=== PATIENT | female | born 1935 | race Caucasian/White ===

== ENCOUNTER 2016-04-15 16:39 | Inpatient (IN) | payer MEDICARE, OTHER ==
--- NOTE | 2016-04-15 18:45 | ED.PDOC ---
History of Present Illness - General Chief Complaint: GI Problem Stated Complaint: nausea, poor intake Time Seen by Provider: 04/15/16 18:33 Source: family Exam Limitations: clinical condition - History of Present Illness Allergies/Adverse Reactions: Allergies Amoxicillin Allergy (Verified 04/15/16 17:23) Epinephrine Allergy (Verified 04/15/16 17:23) Lidocaine Allergy (Verified 04/15/16 17:23) Home Medications: Ambulatory Orders Amlodipine Besylate 5 mg PO DAILY 04/11/13 Aspirin [Aspirin 81] 81 mg PO DAILY 04/11/13 Atorvastatin Calcium 20 mg PO HS 04/11/13 Carvedilol 6.25 mg PO BID 04/11/13 Cholecalciferol [Vitamin D] 1,000 unit PO BID 04/11/13 Furosemide 40 mg PO BID 04/11/13 Isosorbide Mononitrate [Isosorbide Mononitrate ER] 30 mg PO DAILY 04/11/13 Paricalcitol [Zemplar] 1 mcg PO DAILY 04/11/13 Potassium Chloride [Potassium Chloride ER] 8 meq PO DAILY 04/11/13 Raloxifene HCl [Evista] 60 mg PO DAILY 04/11/13 Spironolactone 25 mg PO DAILY 04/11/13 Donepezil Hydrochloride [Aricept] 10 mg PO DAILY 09/29/14 Remidex 1 mg PO DAILY 09/29/14 Past Medical History (General) - Patient Medical History Hx Seizures: No Hx Stroke: No Hx Asthma: No Hx of COPD: Yes Hx Cardiac Disorders: Yes Hx Congestive Heart Failure: Yes Hx Pacemaker: No Hx Hypertension: Yes Hx Diabetes: No Hx Renal Disease: Yes - Kidney disease Hx Cancer: Yes - Breast Hx MRSA: No - Vaccination History Hx Influenza Vaccination: No - unknown Hx Pneumococcal Vaccination: No - unknown - Social History Hx Tobacco Use: Yes Hx Alcohol Use: No Hx Substance Use: No Hx Physical Abuse: No Hx Emotional Abuse: No - Activities of Daily Living Senior Care/Assisted Living (if applicable):: [facility] - Female History Patient is a Female of Child Bearing Age (10 -59 yrs old): No Departure - Departure Departure Forms: ED Discharge - Pt. Copy, Patient Portal Self Enrollment Home Medications: Ambulatory Orders Amlodipine Besylate 5 mg PO DAILY 04/11/13 Aspirin [Aspirin 81] 81 mg PO DAILY 04/11/13 Atorvastatin Calcium 20 mg PO HS 04/11/13 Carvedilol 6.25 mg PO BID 04/11/13 Cholecalciferol [Vitamin D] 1,000 unit PO BID 04/11/13 Furosemide 40 mg PO BID 04/11/13 Isosorbide Mononitrate [Isosorbide Mononitrate ER] 30 mg PO DAILY 04/11/13 Paricalcitol [Zemplar] 1 mcg PO DAILY 04/11/13 Potassium Chloride [Potassium Chloride ER] 8 meq PO DAILY 04/11/13 Raloxifene HCl [Evista] 60 mg PO DAILY 04/11/13 Spironolactone 25 mg PO DAILY 04/11/13 Donepezil Hydrochloride [Aricept] 10 mg PO DAILY 09/29/14 Remidex 1 mg PO DAILY 09/29/14
[2016-04-15] MEDS ORDERED: CALCIUM GLUCONATE INJ 1 GM/10 ML VIAL IV ONE (19:06)
[2016-04-15] MEDS ORDERED: INSULIN, REG.(HUMAN) 100 U/ML VIAL IV ONE (19:07)
[2016-04-15] MEDS ORDERED: SODIUM BICARBONATE SYRINGE 50 MEQ/50 ML SYG IV ONE (19:08)
--- NOTE | 2016-04-15 19:23 | ED.PDOC ---
History of Present Illness - General Chief Complaint: GI Problem Stated Complaint: nausea, poor intake Time Seen by Provider: 04/15/16 18:33 Source: patient, RN notes reviewed Exam Limitations: no limitations Additional Information: She was brought here by [facility] personnel for further evaluation of abnormal lab result.Patient stated she had been feeling weak for several weeks with loss of appetite,nauseated. - History of Present Illness Initial Comments: Sent by md for further evaluation of abnormal lab test Timing/Duration: other - 2 weeks Improving Factors: nothing Associated Symptoms: loss of appetite Allergies/Adverse Reactions: Allergies Amoxicillin Allergy (Verified 04/15/16 17:23) Epinephrine Allergy (Verified 04/15/16 17:23) Lidocaine Allergy (Verified 04/15/16 17:23) Home Medications: Ambulatory Orders Amlodipine Besylate 5 mg PO DAILY 04/11/13 Aspirin [Aspirin 81] 81 mg PO DAILY 04/11/13 Atorvastatin Calcium 20 mg PO HS 04/11/13 Carvedilol 6.25 mg PO BID 04/11/13 Cholecalciferol [Vitamin D] 1,000 unit PO BID 04/11/13 Furosemide 40 mg PO BID 04/11/13 Isosorbide Mononitrate [Isosorbide Mononitrate ER] 30 mg PO DAILY 04/11/13 Paricalcitol [Zemplar] 1 mcg PO DAILY 04/11/13 Potassium Chloride [Potassium Chloride ER] 8 meq PO DAILY 04/11/13 Raloxifene HCl [Evista] 60 mg PO DAILY 04/11/13 Spironolactone 25 mg PO DAILY 04/11/13 Donepezil Hydrochloride [Aricept] 10 mg PO DAILY 09/29/14 Remidex 1 mg PO DAILY 09/29/14 Past Medical History (General) - Patient Medical History Hx Seizures: No Hx Stroke: No Hx Asthma: No Hx of COPD: Yes Hx Cardiac Disorders: Yes Hx Congestive Heart Failure: Yes Hx Pacemaker: No Hx Hypertension: Yes Hx Diabetes: No Hx Renal Disease: Yes - Kidney disease Hx Cancer: Yes - Breast Hx MRSA: No - Vaccination History Hx Influenza Vaccination: No - unknown Hx Pneumococcal Vaccination: No - unknown - Social History Hx Tobacco Use: Yes Hx Alcohol Use: No Hx Substance Use: No Hx Physical Abuse: No Hx Emotional Abuse: No - Activities of Daily Living Senior Care/Assisted Living (if applicable):: [facility] [place] - Female History Patient is a Female of Child Bearing Age (10 -59 yrs old): No Family Medical History - Family History Mother Family History: Unknown Name: Jennifer Trevino Living Status: Age at (years of age): 82 Cause of : Heart attack Physical Exam - Physical Exam General Appearance: Alert, No apparent distress Ears, Nose, Throat: hearing grossly normal, normal ENT inspection, normal pharynx Neck: non-tender, full range of motion, supple Respiratory: lungs clear, normal breath sounds, no respiratory distress, no accessory muscle use Cardiovascular/Chest: normal peripheral pulses, regular rate, rhythm, no edema, no murmur Peripheral Pulses: radial,right: 2+, radial,left: 2+ Gastrointestinal/Abdominal: normal bowel sounds, non tender, soft, no organomegaly Back Exam: normal inspection, no CVA tenderness Extremity: non-tender, pedal edema - +1 bilaterally Neurologic: no motor/sensory deficits, alert, oriented x 3 Skin Exam: normal color, warm/dry Lymphatic: no adenopathy Departure - Departure Clinical Impression: [id number] renal failure, Hyperkalemia, diminished renal excretion, CHF with unknown LVEF Time of Disposition: 00:00 - D/W Smith [id number] Disposition: Admit Patient Condition: Fair Departure Forms: ED Discharge - Pt. Copy, Patient Portal Self Enrollment Home Medications: Ambulatory Orders Amlodipine Besylate 5 mg PO DAILY 04/11/13 Aspirin [Aspirin 81] 81 mg PO DAILY 04/11/13 Atorvastatin Calcium 20 mg PO HS 04/11/13 Carvedilol 6.25 mg PO BID 04/11/13 Cholecalciferol [Vitamin D] 1,000 unit PO BID 04/11/13 Furosemide 40 mg PO BID 04/11/13 Isosorbide Mononitrate [Isosorbide Mononitrate ER] 30 mg PO DAILY 04/11/13 Paricalcitol [Zemplar] 1 mcg PO DAILY 04/11/13 Potassium Chloride [Potassium Chloride ER] 8 meq PO DAILY 04/11/13 Raloxifene HCl [Evista] 60 mg PO DAILY 04/11/13 Spironolactone 25 mg PO DAILY 04/11/13 Donepezil Hydrochloride [Aricept] 10 mg PO DAILY 09/29/14 Remidex 1 mg PO DAILY 09/29/14
--- NOTE | 2016-04-15 21:03 | CT ---
PROCEDURE: Abdoment/Pelvis w/o Contrast Clinical History: pain Indication: Same as above Comparison: CT of the chest done on 09/30/2014 Technique: CT of the abdomen and pelvis was done without intravenous contrast. Images were obtained from the lung base to the level of the pubic symphysis in axial plane, followed by orthogonal sagittal and coronal reconstruction. Oral contrast was not given for the study. Total DLP: 1187.3 mGy*cm. Findings: Images through the lung bases show underlying changes of COPD. There is presence of a 1.0 cm nodule in the periphery of the right lower lobe of the lung with spiculated margins raising the possibility of a malignant lesion and needs to be further assessed with a dedicated CT of the chest The liver, gallbladder, pancreas, spleen and the bilateral adrenal glands appear unremarkable, given the limitation of lack of intravenous contrast. The left kidney slightly atrophic. There is presence of multiple subcentimeter nonobstructive bilateral renal calculi, worst on the right than the left side. Note is also made of parenchymal calcifications involving the lower pole of the atrophic left kidney The urinary bladder is unremarkable, without any evidence of wall thickening, calculi or filling defects. The small bowel appears unremarkable, without any evidence of small bowel obstruction or bowel wall thickening. The appendix is not visualized There is no CT evidence of acute colonic diverticulitis or colitis or large bowel obstruction. There is no pathological lymphadenopathy in the retroperitoneum or in the pelvic region. There is no evidence of free fluid or free air in the abdomen or the pelvic region. Atherosclerotic changes are seen in the abdominal aorta. There is presence of aorta iliac stents There is no clinically significant inguinal or ventral hernia. The visualized lumbar spine show underlying mild degenerative change. The paravertebral soft tissues are unremarkable. The remainder of the pelvic structures are unremarkable. Impression: Images through the lung bases show underlying changes of COPD. There is presence of a 1.0 cm nodule in the periphery of the right lower lobe of the lung with spiculated margins raising the possibility of a malignant lesion and needs to be further assessed with a dedicated CT of the chest The left kidney slightly atrophic. There is presence of multiple subcentimeter nonobstructive bilateral renal calculi, worst on the right than the left side. Note is also made of parenchymal calcifications involving the lower pole of the atrophic left kidney Location of Interpretation: Teleradiology Electronically signed by: Moreno De Leon MD 04/15/2016 9:02 PM ONLINE MARKETING ANALYST
[2016-04-15] MEDS ORDERED: DEX 5% W/NACL 0.45% 1000ML 1,000 ML IVS PRN (21:15)
[2016-04-15] MEDS ORDERED: SOD POLYSTYRENE SULFONATE 15 GM/60 ML BTTL PO ONE (21:18)
[2016-04-15] MEDS ORDERED: SODIUM BICARBONATE VIAL 50 MEQ in DEXTROSE 5% 1000ML 1,000 ML IVS SCH (21:30)
--- NOTE | 2016-04-16 00:05 | HP ---
SUPERVISING PHYSICIAN: Dago Choudhury MD CHIEF COMPLAINT: Nausea and poor intake. HISTORY OF PRESENT ILLNESS: Ms. Leija is an 80-year-old, female patient who presented to the Emergency Department from [facility]. The [facility] facility noted there were some abnormal lab results and the patient was instructed to go to the Emergency Room for further evaluation. She had been having some weakness for the last several weeks and loss of appetite and has been nauseated. In the Emergency Department, laboratory studies were completed showing she had a mild leukocytosis of 11.4 with a left shift. Chemistries shows hyperkalemia with potassium 6.3, but BUN was 84, creatinine 4.13, calcium 8.8, uric acid 9.0, lipase elevated at 60. She was then given treatment for the hyperkalemia with sodium bicarb, calcium gluconate and insulin. Repeated laboratory studies showed she continued to have elevated potassium of 5.8. She was then given Kayexalate. I was requested to evaluate the patient for possible admission with the patient having acute on chronic renal failure. Her EKG showed some T-wave inversion in the anterolateral leads. Troponin was 0.04. The patient was without any significant chest pains. Her BNP was elevated at 334. Urine showed just a trace of blood with microscopic with 3 to 5 RBCs. She was hemodynamically stable with blood pressure of 119/67 with heart of 64 and afebrile at 97.2. O2 saturation 96% on room air. The patient is now going to be admitted to the Medical/Surgical Floor for continued treatment and evaluation of acute renal failure with hyperkalemia. She was admitted to the Medical/Surgical Floor in stable condition. PAST MEDICAL HISTORY: 1. Congestive heart failure, currently an angiotensin receptor april. 2. Hyperlipidemia. 3. Peripheral vascular disease. 4. History of lymphedema. 5. History of pulmonary embolism in 2007. 6. History of chronic renal failure, stage 4. 7. Osteoporosis. 8. Hyperparathyroid, followed by Dr. Julian. 9. Breast cancer diagnosed in 2013 status post surgical resection by Dr. Ribera. 10. Alzheimer's. 11. Chronic obstructive pulmonary disease. PAST SURGICAL HISTORY: 1. Left breast mastectomy in 07/[address] Ribera. 2. Colonoscopy in 2007. 3. Echocardiogram on 06/20/15 with estimated ejection fraction of 45%. 4. Cardiac catheterization in 02/2009. CURRENT MEDICAL PROVIDERS: 1. Financial Reporting Specialist, Dr. Albrecht. 2. Binder Caser, Dr. Chaudhari and Dr. Graham. 3. Perforating Machine Operator, Dr. Jama. 4. Maternity Nurse/oncologist, Dr. Chin. 5. Behavioral Health Assistant, Dr. Ponce. 6. Surgeon, Dr. Ribera. 7. Vascular surgeon, Dr. Dickinson. 8. Primary care provider, Dr. Mosqueda CURRENT MEDICATIONS: 1. Aricept 23 mg at bedtime. 2. Aspirin 325 mg daily. 3. Tylenol 500 mg q.6h. p.r.n. pain. 4. Lipitor 20 mg at bedtime. 5. Clonazepam 0.5 mg twice daily as needed. 6. Evista 60 mg daily. 7. Spironolactone 25 mg daily. 8. Vitamin D 1000 units twice daily. 9. Potassium chloride 8 mEq every other day. 10. Namenda 5 mg twice daily. 11. Mucinex 600 mg twice daily as needed. 12. Isosorbide mononitrate Extended Release 30 mg daily. 13. Lasix 40 mg twice daily. 14. Valsartan 40 mg daily. 15. MiraLAX 17 grams daily. 16. Proventil nebulizers 2.5 mg inhaled a.c. and h.s. 17. Advair Diskus 250/50 1 puff twice daily. FAMILY HISTORY: The patient's father at age 66 from coronary artery disease. Mother at age 80 from normal causes. SOCIAL HISTORY: The patient is retired. She does live at [facility]. She is . She has no children. She has a history of previous cigarette smoking, but quit many years past. She denies any alcohol or illicit drug use. REVIEW OF SYSTEMS: CONSTITUTIONAL: Denies any fevers, chills, or unintentional weight loss or weight gain. HEENT: Somewhat hard of hearing, but no visual disturbances noted. RESPIRATORY: No noted shortness of breath, cough. CARDIOVASCULAR: Denies chest pain or palpitations. No syncopal episodes. GASTROINTESTINAL: Denies nausea or vomiting. No diarrhea or bloody stools. GENITOURINARY: Denies dysuria. EXTREMITIES: Denies edema. NEUROLOGIC: Denies syncopal episodes or neurological deficits. PHYSICAL EXAMINATION: VITAL SIGNS: Temperature 97.2. Pulse 64. Blood pressure 119/67. Respirations 18. O2 saturation 95% on room air. Weight 53.2 kg. GENERAL: The patient is alert, appears to be in no acute distress. HEENT: Tympanic membranes clear bilaterally. Oropharynx is pink. Mucous membranes are dry. NECK: Supple, nontender. No jugular venous distention noted. CHEST: Lungs clear to auscultation bilaterally without any rhonchi, wheezes, or rales. CARDIOVASCULAR: Regular rate and rhythm without any appreciable murmurs, gallops, or rubs. ABDOMEN: Soft, nontender. Positive bowel sounds. EXTREMITIES: There is no cyanosis, clubbing or edema. NEUROLOGIC: The patient is alert and oriented times three. Cranial nerves II- XII are grossly intact. Facial features are symmetrical. Extraocular movements are within normal limits. There are no notable motor deficits. LABORATORY: White count 11.4, hemoglobin 12.0, hematocrit 37.0, platelet count 250,000. Differential does show a left shift. Chemistries showed initial potassium of 6.3, BUN 84, creatinine 4.13, glucose 105, calcium 8.8, uric acid 9.0, phosphorous 3.1, magnesium 3.1, lipase slightly elevated at 60. Troponin initially was 0.04, CPK only 88. Repeat laboratory studies after calcium gluconate and IV fluids as well as insulin and sodium bicarb, potassium had decreased a little bit to 5.8, BUN 81, creatinine 4.0, BNP 334. Urinalysis showed trace blood on dipstick. Microscopic revealed 3 to 5 RBCs, otherwise within normal limits. RADIOLOGY: Abdominopelvic CT, noncontrast, per radiology interpretation shows chronic obstructive pulmonary disease changes of the lung bases. There is also note of a 1.0 cm nodule in the periphery of the right lower lobe of the lung with spiculated margins, raising the question of possible malignant lesion. Recommend further assessment with CT of the chest. Also of note was slight atrophic left kidney with multiple subcentimeter nonobstructive bilateral renal calculi, worse on right than left. ASSESSMENT: 1. Acute on chronic renal failure with hyperkalemia with the patient being on Spironolactone and also an angiotensin receptor april, showing minimal improvement after calcium gluconate, sodium bicarb, and insulin in the Emergency Department. 2. Mild leukocytosis, likely secondary to dehydration with no obvious signs of infection. 3. Moderate hyperkalemia in the presence of acute on chronic renal failure, possibly exacerbated by medications including Spironolactone, Angiotensin receptor april and oral potassium. 4. History of congestive heart failure with last ejection fraction in 2016 showing 45% with admission BNP being elevated. 5. Moderate dehydration, possibly exacerbating renal function and hyperkalemia. 6. History of hyperparathyroidism with current elevated uric acid, normal phosphorous and elevated magnesium. 7. Elevated pancreatic enzymes, likely secondary to dehydrated state and poor oral intake. PLAN: The patient is admitted to the hospital for continued treatment and evaluation. In the Emergency Department, treatment of hyperkalemia consisted of calcium gluconate, sodium bicarb and 5 units of insulin. She was also given Kayexalate. We will continue treatment of her hyperkalemia with 10 units of insulin in D10W 500 mL to infuse over an hour to be followed up with IV fluids with D5 and half normal saline to run at 100 mL an hour. She will be on the monitor technician. We will continue to monitor cardiac enzymes in the morning as well as repeat EKG. Dr. Jama is her lead engineer and certainly would benefit from touching base with him in regards to current treatment plan and further treatment and hospitalization. Anticipate length of stay to be 2 to 3 days. We will start her on DVT prophylaxis. Resume her medication except hold her Spironolactone, Lasix, potassium, and Darvon. Until discharge, we will continue to monitor the patient closely and treat appropriately. #[id number] [facility]
[2016-04-16] MEDS ORDERED: INSULIN, REG.(HUMAN) 10 UNITS in DEXTROSE 10% 500ML 500 ML IV ONE ×2 (00:53)
[2016-04-16] MEDS ORDERED: SODIUM CHLORIDE 0.9% (FLUSH) 10 ML SYG IV PRN (00:57)
[2016-04-16] MEDS ORDERED: ACETAMINOPHEN 325 MG TAB PO PRN (00:57)
[2016-04-16] MEDS ORDERED: IV SET AND CAP CHANGE INJ INJ SCH (01:00)
--- NOTE | 2016-04-16 01:06 | PCM.CORE ---
Physician DVT/VTE - Nurse DVT Assessment & Total Each Risk Factor Represents 3 Points: Age over 75 years, Medical PT with Hx of SC, CHF, Severe infection/sepsis Each Risk Factor Represents 2 Points: Malignancy (present/past) Each Risk Factor Represents 1 Point: Medical PT at Bed Rest Each Risk Factor is 1 Point: Varicose Veins/Edema Legs, Serious Lung disease ( pnemonia <1month, COPD, emphysema,etc) DVT Assessment Score: 11 - 5 or more Very High Risk Treatments: Early Ambulation *, Sequential Compression Device Pharmacological: Enoxaparin 40mg SQ Daily
[2016-04-16] MEDS ORDERED: INSULIN LISPRO 100 UNITS/ML PEN SUBCU ONE (01:16)
[2016-04-16] MEDS ORDERED: INSULIN, REG.(HUMAN) 100 U/ML VIAL ONE (01:24)
[2016-04-16] MEDS: ENOXAPARIN SODIUM 30 MG/0.3 ML SYG SUBCU SCH (01:36)
[2016-04-16] MEDS: DEX 5% W/NACL 0.45% 1000ML 1,000 ML IVS PRN ×2 (02:34→12:27)
[2016-04-16] MEDS ORDERED: ACETAMINOPHEN 500 MG TAB PO PRN (03:19)
[2016-04-16] MEDS ORDERED: ATORVASTATIN CALCIUM 20 MG PO SCH (03:30)
[2016-04-16] MEDS ORDERED: ATORVASTATIN 20 MG TAB PO ONE (03:41)
[2016-04-16] MEDS ORDERED: SODIUM CHLORIDE 0.9% 10 ML VIAL IV PRN (06:57)
[2016-04-16] MEDS ORDERED: SODIUM BICARBONATE VIAL 50 MEQ in DEXTROSE 5% 1000ML 1,000 ML IVS PRN (07:56)
[2016-04-16] MEDS: ALBUTEROL SULFATE 2.5 MG/3 ML VIAL NEB SCH ×4 (08:00→21:32)
[2016-04-16] MEDS: CHOLECALCIFEROL 2,000 IU TAB PO SCH ×2 (08:55→21:00)
[2016-04-16] MEDS: CARVEDILOL 3.125 MG TAB PO SCH ×2 (08:55→21:00)
[2016-04-16] MEDS: FUROSEMIDE 40 MG TAB PO SCH ×2 (08:55→16:37)
[2016-04-16] MEDS: POTASSIUM CHLORIDE 8 MEQ TAB PO SCH (08:55)
[2016-04-16] MEDS: MEMANTINE 10 MG TAB PO SCH ×2 (08:56→21:01)
[2016-04-16] MEDS: POLYETHYLENE GLYCOL 3350 17 GM PCKT PO SCH (08:56)
[2016-04-16] MEDS: ISOSORBIDE MONONITRATE (IMDUR) 30 MG TAB PO SCH (08:56)
[2016-04-16] MEDS: NON-FORMULARY MEDICATION 1 EA MIS (Raloxifene Hcl [Evista] 60 MG) PO SCH (08:57)
[2016-04-16] MEDS: FLUTICASONE/SALMETEROL 250/50 14 PUFF/17 GM INH INH SCH ×2 (09:54→21:32)
[2016-04-16] MEDS ORDERED: SODIUM BICARBONATE 10MEQ/10ML 75 MEQ in DEXTROSE 5% 1000ML 1,000 ML IV PRN (12:44)
--- NOTE | 2016-04-16 13:16 | PN ---
SUPERVISING PHYSICIAN: Dago Choudhury MD DATE: 04/16/16 SUBJECTIVE: The patient is lying in her hospital bed. She has no complaints of shortness of breath, chest pain, nausea, vomiting, or diarrhea. OBJECTIVE: VITAL SIGNS: Afebrile. Heart rate 61. It did get as low as 44 overnight. Blood pressure 125/64. Respiratory rate 18. O2 saturation 97%. GENERAL: This is an 80-year-old, female patient who is lying in her hospital bed. She is in no acute distress. LUNGS: Essentially clear to auscultation bilaterally. CARDIAC: Regular rate and rhythm. ABDOMEN: Soft, nontender, nondistended. Bowel sounds are positive. EXTREMITIES: No cyanosis, clubbing or edema. NEUROLOGIC: Awake and alert to person only. LABORATORY: Sodium 137, potassium 3.7, chloride 104, carbon dioxide 23, anion gap 13.7, BUN 72, creatinine 3.53, glucose 85, serum osmolality 294.3, calcium 8.3. Cardiac enzymes continue to be negative. WBC 11.2, hemoglobin 11.2, hematocrit 34.6, platelet count 222, neutrophils 83.1. All other labs and films have been reviewed via the EMR. ASSESSMENT: 1. Acute on chronic renal failure with hyperkalemia. The patient is presently on Spironolactone and an angiotensin receptor april. She received calcium gluconate, sodium bicarb, and insulin in the Emergency Department. 2. Mild leukocytosis, likely secondary to dehydration with no obvious signs of infection. 3. Moderate hyperkalemia in the presence of acute on chronic renal failure, possibly exacerbated by medications including Spironolactone, angiotensin receptor april and oral potassium. 4. History of congestive heart failure with last ejection fraction in 2016 showing 45% with admission BNP being elevated. 5. Moderate dehydration. 6. History of hyperparathyroidism. 7. Elevated pancreatic enzymes, likely secondary to dehydrated state and poor oral intake. PLAN: We will continue gentle hydration and I have given her 1 liter of D5W with some bicarb. I spoke to Dr. Jama this morning and he agrees with our present of plan of care. He agreed at this point that her ARB should be discontinued when she is discharged from the hospital. She is also to have a followup appointment with him on the and I will call his office to get that arranged. I have repeated her lab for in the morning. We will encourage good pulmonary toilet. I will also increase her ambulation as tolerated. Dr. Choudhury is the collaborating physician and available for consultation. #[id number] [facility]
[2016-04-16] MEDS ORDERED: SODIUM BICARBONATE VIAL 50 MEQ/50 ML VIAL ONE (13:19)
[2016-04-16] MEDS ORDERED: DEXTROSE 5% 1000ML 1,000 ML IVS ONE (13:19)
[2016-04-16] MEDS: SODIUM BICARBONATE VIAL 75 MEQ in DEXTROSE 5% 1000ML 1,000 ML IV PRN (13:27)
[2016-04-16] MEDS: ATORVASTATIN 20 MG TAB PO SCH (21:00)
[2016-04-16] MEDS: DONEPEZIL HYDROCHLORIDE PO SCH (21:02)
[2016-04-17] MEDS ORDERED: SODIUM BICARBONATE VIAL 50 MEQ/50 ML VIAL ONE ×2 (00:23→00:25)
[2016-04-17] MEDS ORDERED: DEXTROSE 5% 1000ML 0 ML IVS ONE (00:23)
[2016-04-17] MEDS ORDERED: DEX 5% W/NACL 0.45% 1000ML 0 ML IVS ONE (00:23)
[2016-04-17] MEDS ORDERED: DEXTROSE 5% 1000ML 1,000 ML IVS ONE (00:24)
[2016-04-17] MEDS: SODIUM BICARBONATE VIAL 75 MEQ in DEXTROSE 5% 1000ML 1,000 ML IV PRN (00:32)
[2016-04-17] MEDS: ENOXAPARIN SODIUM 30 MG/0.3 ML SYG SUBCU SCH (01:34)
[2016-04-17] MEDS: MEMANTINE 10 MG TAB PO SCH ×2 (09:02→20:34)
[2016-04-17] MEDS: POLYETHYLENE GLYCOL 3350 17 GM PCKT PO SCH (09:02)
[2016-04-17] MEDS: ISOSORBIDE MONONITRATE (IMDUR) 30 MG TAB PO SCH (09:02)
[2016-04-17] MEDS: CARVEDILOL 3.125 MG TAB PO SCH ×2 (09:02→20:33)
[2016-04-17] MEDS: CHOLECALCIFEROL 2,000 IU TAB PO SCH ×2 (09:02→20:32)
[2016-04-17] MEDS: FUROSEMIDE 40 MG TAB PO SCH ×2 (09:03→17:33)
[2016-04-17] MEDS: NON-FORMULARY MEDICATION 1 EA MIS (Raloxifene Hcl [Evista] 60 MG) PO SCH (09:03)
[2016-04-17] MEDS: FLUTICASONE/SALMETEROL 250/50 14 PUFF/17 GM INH INH SCH ×2 (09:13→20:43)
[2016-04-17] MEDS: ALBUTEROL SULFATE 2.5 MG/3 ML VIAL NEB SCH ×4 (09:13→20:42)
[2016-04-17] MEDS ORDERED: POTASSIUM PHOSPHATE 500 MG TAB PO ONE (15:13)
[2016-04-17] MEDS ORDERED: ASPIRIN TABLET 325 MG TAB PO ONE (15:54)
--- NOTE | 2016-04-17 16:52 | PN ---
DATE: 04/17/16 SUPERVISING PHYSICIAN: Dago Choudhury M.D. SUBJECTIVE: The patient is lying in bed. She is quite sleepy at this time. Nursing staff reported that she became quite anxious at about 5:00 this morning and received a Klonopin. She does open her eyes and answer simple yes or no questions. She does deny chest pain, shortness of breath, nausea or vomiting. OBJECTIVE: She is afebrile, pulse rate 82, blood pressure 103/58, respiratory rate 20, O2 sat is 96%. GENERAL: This is an 80 year-old female patient who is lying in her hospital bed. She is in no acute distress. RESPIRATORY: Essentially clear to auscultation bilaterally. CARDIAC: Regular rate and rhythm. ABDOMEN: Soft, nondistended, non-tender. Bowel sounds are positive. NEUROLOGIC: She is lethargic but she does awaken easily. She is alert to person only. She does answer a few simple yes or no questions appropriately. LABORATORY: WBCs have normalized from 11.2 to 8.1, hemoglobin and hematocrit are stable at 11.3 and 34.5. Neutrophils are now 74.8. Sodium 135, potassium 3.5, chloride 100, anion gap 8.5. BUN yesterday was 72 and it is now 46, creatinine yesterday was 3.53 and today it is 2.44. Baseline creatinine is around 1.4 from about 2014. Calcium 7.9, phosphorus 2.3, alkaline phosphatase 31. All other labs and films have been reviewed via the EMR. ASSESSMENT: 1. Acute on chronic renal failure with hyperkalemia. She is presently on Spironolactone and an ARB as an outpatient. She received calcium gluconate, sodium bicarbonate and insulin in the Emergency Department. Her acute on chronic renal failure is slowly resolving. 2. Mild leukocytosis that is now resolved and is most likely secondary to dehydration with no obvious signs of infection. 3. Moderate hyperkalemia that has now resolved. 4. History of congestive heart failure with her last ejection fraction in 2016 showing 45% and an elevated BNP on admission. 5. Moderate dehydration. 6. History of hyperparathyroidism. 7. Elevated pancreatic enzymes that are now resolved. PLAN: We have discontinued her IV fluids. I have also restarted her Lasix and potassium but I have discontinued her ARB. It should not be continued on discharge as per Dr. Jama. We are also going to get a [facility] appointment on here in [place] for followup. Her lab values are returning to baseline and hopefully we can discharge her tomorrow back to [facility] with close followup with Dr. Mosqueda and Dr. Jama. In the meantime, we will continue to monitor the patient closely and followup as needed. Dr. Choudhury is the collaborating physician available for consultation. #[id number] [facility]
[2016-04-17] MEDS ORDERED: guaiFENesin ER TAB 600 MG TAB ONE (19:41)
[2016-04-17] MEDS: SODIUM CHLORIDE 0.9% (FLUSH) 10 ML SYG IV SCH (20:31)
[2016-04-17] MEDS: ATORVASTATIN 20 MG TAB PO SCH (20:34)
[2016-04-17] MEDS: guaiFENesin ER TAB 600 MG TAB PO SCH (20:35)
[2016-04-17] MEDS: DONEPEZIL HYDROCHLORIDE PO SCH (23:24)
[2016-04-18] MEDS: ENOXAPARIN SODIUM 30 MG/0.3 ML SYG SUBCU SCH (01:25)
[2016-04-18] MEDS ORDERED: SPIRONOLACTONE 25 MG TAB ONE (07:23)
[2016-04-18] MEDS: CARVEDILOL 3.125 MG TAB PO SCH (08:41)
[2016-04-18] MEDS: MEMANTINE 10 MG TAB PO SCH (08:41)
[2016-04-18] MEDS: FLUTICASONE/SALMETEROL 250/50 14 PUFF/17 GM INH INH SCH (08:41)
[2016-04-18] MEDS: ALBUTEROL SULFATE 2.5 MG/3 ML VIAL NEB SCH (08:41)
[2016-04-18] MEDS: CHOLECALCIFEROL 2,000 IU TAB PO SCH (08:42)
[2016-04-18] MEDS: POTASSIUM CHLORIDE 8 MEQ TAB PO SCH (08:42)
[2016-04-18] MEDS: POLYETHYLENE GLYCOL 3350 17 GM PCKT PO SCH (08:42)
[2016-04-18] MEDS: guaiFENesin ER TAB 600 MG TAB PO SCH (08:42)
[2016-04-18] MEDS: ISOSORBIDE MONONITRATE (IMDUR) 30 MG TAB PO SCH (08:42)
[2016-04-18] MEDS: NON-FORMULARY MEDICATION 1 EA MIS (Raloxifene Hcl [Evista] 60 MG) PO SCH (08:42)
[2016-04-18] MEDS: FUROSEMIDE 40 MG TAB PO SCH (08:42)
[2016-04-18] MEDS: SODIUM CHLORIDE 0.9% (FLUSH) 10 ML SYG IV SCH (08:54)
[2016-04-18] MEDS ORDERED: SPIRONOLACTONE 25 MG TAB PO SCH (09:00)
[2016-04-18 10:40] VITALS: BP 96/60; TEMP 97.1; O2SAT 97
--- NOTE | 2016-04-18 18:25 | DS ---
SUPERVISING PHYSICIAN: Vikas Mosqueda M.D. DISCHARGE DIAGNOSIS: 1. Acute on chronic renal failure with hyperkalemia. The hyperkalemia is now resolved. She is on Spironolactone and an ARB as an outpatient prior to admission. 2. Mild leukocytosis that has resolved and most likely secondary to dehydration with no obvious signs of infection. 3. Moderate hyperkalemia that has now resolved. 4. History of congestive heart failure with her last echocardiogram in 2016 with an ejection fraction of 45% and an elevated BNP on admission. 5. Moderate dehydration. 6. History of hyperparathyroidism. 7. Elevated pancreatic enzymes that are now resolved. 8. Dementia. HISTORY OF PRESENT ILLNESS: This is an 80 year-old female patient who is a resident of [facility]. The [facility] noted that there was some abnormal laboratory results and the patient was instructed to go to the Emergency Room for evaluation. She has had some progressive weakness in the last several weeks as well as a loss of appetite. In the Emergency Room, she had mild leukocytosis of 11.4 with a left shift. Her chemistries showed hyperkalemia with potassium 6.3. Her BUN was 84 and creatinine was 4.13, calcium 8.8, uric acid 9. Lipase was elevated at 60. She was given treatment for the hyperkalemia with sodium bicarb, calcium gluconate and insulin. The repeated laboratory studies showed an elevated potassium of 5.8. She was then given Kayexalate. Her cardiac enzymes were negative. BNP was slightly elevated at 334. Urine had a trace of microscopic blood with 3 to 5 RBCs. Blood pressure was 119/67, heart rate 64 and she was afebrile. O2 sats were 96 % on room air. She was admitted to the floor. HOSPITAL COURSE: Again, she was treated with some calcium gluconate, insulin and dextrose, and her potassium came down to 3.7. Creatinine was started at 4.4 and is now down to 2.36. She was given a liter of D5W with 1.[address] Jama was called and he agreed with the present treatment. She does have significant history of dementia and during her stay her dementia at times was rather significant to the point that she would not eat, but she was always pleasant but confused as to where she was. Her labs have been optimized for her present condition and history. She will be discharged back to [facility] today. DISCHARGE PLAN: The patient will be discharged to [facility] in stable condition. She is to resume her previous diet. Her activity is per Physical Therapy. Her previous medications will be resumed with the exception of her ARB will be discontinued at the recommendation of Dr. Jama. She has a followup appointment with Dr. Jama on the 29 of April and she has a followup appointment with Dr. Mosqueda on the 01 of May. DISCHARGE MEDICATIONS: 1. Spironolactone. 2. Evista. 3. Potassium chloride. 4. Isosorbide mononitrate. 5. Furosemide. 6. Vitamin D. 7. Carvedilol. 8. Atorvastatin. 9. Guaifenesin. 10. MiraLAX. 11. Albuterol. 12. Fluticasone/Salmeterol. 13. Namenda. 14. Clonazepam. 15. Aspirin. 16. Acetaminophen. 17. Aricept. Dr. Mosqueda is the collaborating physician available for consultation. #[id number] [facility]
== END 2016-04-18 11:45 | DRG 641 ==
LOC: ER 16:39 → OBSVTOIN 04-16 00:04 → MS 04-16 00:04
PROVIDERS: ADMIT Nurse Practitioner Family; ATTEND Nurse Practitioner Acute Care
DX: E87.5 Hyperkalemia (principal); N17.9 Acute kidney failure, unspecified; N18.4 Chronic kidney disease, stage 4 (severe); E86.0 Dehydration; I50.9 Heart failure, unspecified; J44.9 Chronic obstructive pulmonary disease, unspecified; E21.3 Hyperparathyroidism, unspecified; R74.8 Abnormal levels of other serum enzymes; G30.9 Alzheimer's disease, unspecified; F02.80 Dementia in other diseases classified elsewhere, unspecified severity, without behavioral disturbance, psychotic disturbance, mood disturbance, and anxiety; E78.5 Hyperlipidemia, unspecified; I73.9 Peripheral vascular disease, unspecified; M81.0 Age-related osteoporosis without current pathological fracture; Z85.3 Personal history of malignant neoplasm of breast; Z86.711 Personal history of pulmonary embolism; Z79.51 Long term (current) use of inhaled steroids; Z79.82 Long term (current) use of aspirin; Z79.899 Other long term (current) drug therapy; Z87.891 Personal history of nicotine dependence

== ENCOUNTER 2016-04-25 12:36 | Emergency (ER) | payer MEDICARE, OTHER ==
[2016-04-25 13:02] VITALS: BP 112/68; TEMP 97.6; O2SAT 100
--- NOTE | 2016-04-25 13:23 | ED.PDOC ---
History of Present Illness - General Chief Complaint: General Stated Complaint: nausea x 2 weeks Time Seen by Provider: 04/25/16 12:58 Source: patient, RN notes reviewed, Vital Signs reviewed Exam Limitations: no limitations - History of Present Illness Initial Comments: She stated that she had been nauseated on and off for 2 weeks and was sent here by nursing staff from assisted living complaining about her nausea and she mentioned that she was given hamburger for lunch but requested for soup but it was not given to her and so she ate her burger then afterwards felt nauseated. No vomiting ,no chest pains no weakness.She was hospitalized last week for her worsening of renal failure and elevation of potassium.Recent labs showing normal electrolytes and improving bun/cr done 04/22/16. Timing/Duration: other - 2 weeks ago Improving Factors: nothing Worsening Factors: nothing Associated Symptoms: denies symptoms Allergies/Adverse Reactions: Allergies Amoxicillin Allergy (Verified 04/15/16 17:23) Epinephrine Allergy (Verified 04/15/16 17:23) Lidocaine Allergy (Verified 04/15/16 17:23) Home Medications: Ambulatory Orders Atorvastatin Calcium 20 mg PO HS 04/11/13 Carvedilol 6.25 mg PO BID 04/11/13 Cholecalciferol [Vitamin D] 1,000 unit PO BID 04/11/13 Furosemide 40 mg PO BID 04/11/13 Isosorbide Mononitrate [Isosorbide Mononitrate ER] 30 mg PO DAILY 04/11/13 Potassium Chloride [Potassium Chloride ER] 8 meq PO LLUVIA-OTH-DAY 04/11/13 Raloxifene HCl [Evista] 60 mg PO DAILY 04/11/13 Spironolactone 25 mg PO DAILY 04/11/13 Acetaminophen [Tylenol] 500 mg PO Q6HRS PRN 04/16/16 Albuterol Sulfate Nebs [Proventil Nebs] 2.5 mg INH ACHS 04/16/16 Aspirin 325 mg PO DAILY PRN 04/16/16 Atorvastatin Calcium [Lipitor] 20 mg PO BEDTIME 04/16/16 Clonazepam 0.5 mg PO BID PRN 04/16/16 Donepezil Hydrochloride [Aricept] 23 mg PO BEDTIME 04/16/16 Fluticasone/Salmeterol 250/50 [Advair 250/50 Diskus] 1 puff INH BID 04/16/16 Guaifenesin [Mucinex] 600 mg PO BID PRN 04/16/16 Memantine HCl [Namenda] 5 mg PO BID 04/16/16 Polyethylene Glycol 3350 [Miralax] 17 gm PO DAILY 04/16/16 Ondansetron [Zofran Odt] 4 mg PO Q8HRS PRN #20 tab 04/25/16 Review of Systems - Review of Systems Constitutional: States: no symptoms reported EENTM: States: no symptoms reported Respiratory: States: no symptoms reported Cardiology: States: no symptoms reported Gastrointestinal/Abdominal: States: see HPI, nausea Genitourinary: States: no symptoms reported Musculoskeletal: States: no symptoms reported Skin: States: no symptoms reported Neurological: States: no symptoms reported Endocrine: States: no symptoms reported Hematologic/Lymphatic: States: no symptoms reported Past Medical History (General) - Patient Medical History Hx Seizures: No Hx Stroke: No Hx Asthma: No Hx of COPD: Yes Hx Cardiac Disorders: Yes Hx Congestive Heart Failure: Yes Hx Pacemaker: No Hx Hypertension: Yes Hx Diabetes: No Hx Renal Disease: Yes - Kidney disease Hx Cancer: Yes - Breast Hx MRSA: No Surgical History: appendectomy, other - hysterectomy - Vaccination History Hx Influenza Vaccination: Yes - 2016 Hx Pneumococcal Vaccination: Yes - Social History Hx Tobacco Use: Yes - quit Hx Alcohol Use: No Hx Substance Use: No Hx Physical Abuse: No Hx Emotional Abuse: No - Activities of Daily Living Patient Lives Alone: No - assisted living Family Medical History - Family History Mother Family History: Unknown Name: Jennifer Trevino Living Status: Age at (years of age): 81 Cause of : Heart attack Physical Exam - Physical Exam General Appearance: Alert, No apparent distress Eye Exam: bilateral normal Ears, Nose, Throat: hearing grossly normal, normal ENT inspection, normal pharynx Neck: non-tender, full range of motion, supple Respiratory: chest non-tender, lungs clear, normal breath sounds, no respiratory distress, no accessory muscle use Cardiovascular/Chest: normal peripheral pulses, regular rate, rhythm, no edema, no gallop, no JVD, no murmur Gastrointestinal/Abdominal: normal bowel sounds, non tender, soft, no organomegaly Back Exam: normal inspection, no CVA tenderness, no vertebral tenderness Extremity: normal range of motion, non-tender, normal inspection Neurologic: no motor/sensory deficits, alert, normal mood/affect Skin Exam: normal color, warm/dry, cyanosis Lymphatic: no adenopathy Departure - Departure Clinical Impression: Nausea Time of Disposition: 13:37 Disposition: Discharge to Asst Living Condition: Good Departure Forms: ED Discharge - Pt. Copy, Patient Portal Self Enrollment Instructions: DI for Nausea -- Adult Prescriptions: Ondansetron [Zofran Odt] 4 mg PO Q8HRS PRN #20 tab PRN Reason: Nausea Home Medications: Ambulatory Orders Atorvastatin Calcium 20 mg PO HS 04/11/13 Carvedilol 6.25 mg PO BID 04/11/13 Cholecalciferol [Vitamin D] 1,000 unit PO BID 04/11/13 Furosemide 40 mg PO BID 04/11/13 Isosorbide Mononitrate [Isosorbide Mononitrate ER] 30 mg PO DAILY 04/11/13 Potassium Chloride [Potassium Chloride ER] 8 meq PO LLUVIA-OTH-DAY 04/11/13 Raloxifene HCl [Evista] 60 mg PO DAILY 04/11/13 Spironolactone 25 mg PO DAILY 04/11/13 Acetaminophen [Tylenol] 500 mg PO Q6HRS PRN 04/16/16 Albuterol Sulfate Nebs [Proventil Nebs] 2.5 mg INH ACHS 04/16/16 Aspirin 325 mg PO DAILY PRN 04/16/16 Atorvastatin Calcium [Lipitor] 20 mg PO BEDTIME 04/16/16 Clonazepam 0.5 mg PO BID PRN 04/16/16 Donepezil Hydrochloride [Aricept] 23 mg PO BEDTIME 04/16/16 Fluticasone/Salmeterol 250/50 [Advair 250/50 Diskus] 1 puff INH BID 04/16/16 Guaifenesin [Mucinex] 600 mg PO BID PRN 04/16/16 Memantine HCl [Namenda] 5 mg PO BID 04/16/16 Polyethylene Glycol 3350 [Miralax] 17 gm PO DAILY 04/16/16 Ondansetron [Zofran Odt] 4 mg PO Q8HRS PRN #20 tab 04/25/16
== END 2016-04-25 14:10 ==
LOC: ER 12:36
DX: R11.0 Nausea (principal); J44.9 Chronic obstructive pulmonary disease, unspecified; I13.0 Hypertensive heart and chronic kidney disease with heart failure and stage 1 through stage 4 chronic kidney disease, or unspecified chronic kidney disease; I50.9 Heart failure, unspecified; N18.9 Chronic kidney disease, unspecified; Z85.3 Personal history of malignant neoplasm of breast; Z87.891 Personal history of nicotine dependence; Z79.82 Long term (current) use of aspirin; Z79.899 Other long term (current) drug therapy; Z88.3 Allergy status to other anti-infective agents; Z88.4 Allergy status to anesthetic agent

== ENCOUNTER → 2016-05-04 | Outpatient (CLI) | payer MEDICARE, OTHER | END | disposition home or self-care (01) | LOC: GMAM 11:15 | PROVIDERS: ATTEND Family Medicine | DX: R79.9 Abnormal finding of blood chemistry, unspecified (principal) ==

== ENCOUNTER → 2016-05-06 | Outpatient (CLI) | payer MEDICARE, OTHER ==
--- NOTE | 2016-05-06 15:20 | CT ---
EXAM DESCRIPTION: Chest w/o Contrast CLINICAL HISTORY: PULMONARY NODULE COMPARISON: CT abdomen April 2016 TECHNIQUE: Noncontrast transaxial CT images of the chest are obtained. CT scan done according to ALARA (As Low As Reasonably Achievable). FINDINGS: The heart shows severe coronary artery calcifications. Moderate calcified plaque of the aortic arch and great vessels is seen. 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 No pathologically enlarged mediastinal, hilar, or axillary lymphadenopathy is seen given limitations of a noncontrast study. No significant pleural or pericardial effusion. Visualized portion of the upper abdomen shows air and fluid-filled distention of the stomach. Lungs are hyperinflated with increased AP diameter of the chest. The 8 mm nodular density in the right lung base costophrenic angle is decreased size now representing more linear area of parenchymal thickening measuring 4 to 5 mm. Calcified pulmonary nodule in the right middle lobe measuring 16 mm is seen. Calcified nodules in the right upper lobe are noted. There are moderate bullous emphysematous changes to the lungs mainly in the upper lobes. Focal area of pleural thickening in the right lung apex measuring 15 mm without bony destructive changes are seen. Scattered areas of interstitial thickening in the lungs are seen bilaterally. Osseous structures show no aggressive bony lesions. Subcortical cystic changes to the right inferior glenoid are noted likely representing degenerative changes. Increased kyphosis of the upper thoracic spine is seen with diffuse osteopenia of the osseous structures. IMPRESSION: Moderate to severe emphysematous changes to the lungs are identified. The pulmonary nodule the right lung base seen on previous exam probably represents area of scarring or atelectasis and is smaller than previous. Apical nodular pleural thickening in the right lung apex is seen without underlying bony destructive changes. Consider follow-up CT imaging in 3-6 months to determine long-term stability of this nodule. Calcified pulmonary nodule suggests old granulomatous disease. Electronically signed by: Erik Aguiar MD 05/06/2016 3:20 PM [employer]
== END | disposition home or self-care (01) ==
LOC: CT 07:59
PROVIDERS: ATTEND Family Medicine
DX: R91.1 Solitary pulmonary nodule (principal)

== ENCOUNTER → 2016-05-12 | Outpatient (CLI) | payer MEDICARE, OTHER | END | disposition home or self-care (01) | LOC: GMAM 14:40 | PROVIDERS: ATTEND Family Medicine | DX: R11.0 Nausea (principal); N18.3 Chronic kidney disease, stage 3 (moderate) ==

== ENCOUNTER → 2016-05-18 | Outpatient (CLI) | payer MEDICARE, OTHER ==
--- NOTE | 2016-05-18 09:20 | US ---
Gallbladder ultrasound TECHNIQUE: Grayscale and color Doppler images of the gallbladder, liver and pancreas were performed. Data was saved to the patient's medical record. FINDINGS: The pancreas is unremarkable. The liver measures 15 cm in diameter and is unremarkable. The gallbladder is well visualized. The gallbladder wall is 3 mm in diameter. Common bile duct measures 6 mm in diameter. IMPRESSION: Today's gallbladder ultrasound reveals no evidence of cholelithiasis with no evidence of a sonographic Prince's sign. The pancreas and liver are unremarkable. There is prominence of the common bile duct which given patient's age likely unremarkable. If there is concern for a pancreatic segment of common bile duct stone then an MRCP is suggested as the pancreatic segment of the common bile duct is not visualized. Electronically signed by: Anish Osullivan MD 05/18/2016 9:19 AM CDT
== END | disposition home or self-care (01) ==
LOC: US 08:11
PROVIDERS: ATTEND Family Medicine
DX: R11.0 Nausea (principal)

== ENCOUNTER → 2016-05-27 | Outpatient (CLI) | payer MEDICARE, OTHER | END | disposition home or self-care (01) | LOC: GMA 09:30 | PROVIDERS: ATTEND Nurse Practitioner Acute Care | DX: N18.3 Chronic kidney disease, stage 3 (moderate) (principal) ==

== ENCOUNTER 2016-06-30 11:50 | Inpatient (IN) | payer MEDICARE, OTHER ==
--- NOTE | 2016-06-30 12:01 | HP ---
SUPERVISING PHYSICIAN: Vikas Mosqueda MD CHIEF COMPLAINT: Lower leg edema, cellulitis. HISTORY OF PRESENT ILLNESS: Ms. Leija is an 80 year-old female patient that was referred from Dr. Mosqueda's office secondary to underlying cellulitis of both lower extremities. The patient notes that she has had chronic venous stasis type ulcers to the lower extremities but this past week she aggravated both areas when she was playing dominos and bumped her legs against the table and chair. She presented to Dr. Mosqueda's office this morning for evaluation and after noticing the extent of the cellulitis and areas in question, Dr. Mosqueda requested the patient be directly admitted for initiation of antibiotic therapy and wound care. The patient has now to be directly admitted from Dr. Mosqueda's office. She is in stable condition. PAST MEDICAL HISTORY: 1. Congestive heart failure, currently on an angiotensin receptor april. 2. Hyperlipidemia. 3. Peripheral vascular disease. 4. History of lymphedema. 5. History of patient underwent embolus in 2007. 6 History of chronic renal failure stage 4. 7. Osteoporosis. 8. 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 9. Breast cancer diagnosed in 2013 status post surgical resection by Dr. Ribera. 10. Alzheimer's,. 11. Chronic obstructive pulmonary disease. PAST SURGICAL HISTORY: 1. Left breast mastectomy in 07/[address] Ribera. 2. Colonoscopy in 2007. 3. Echocardiogram on 06/20/15 with estimated ejection fraction of 45%. 4. Cardiac catheterization in 02/2009. CURRENT MEDICAL PROVIDERS: 1. Patent Searcher, Dr. Albrecht. 2. Community Board Member, Dr. Chaudhari and Dr. Graham. 3. Clinical Services Consultant, Dr. Jama. 4. Boot Turner/oncologist, Dr. Chin. 5. Addresser, Dr. Ponce. 6. Surgeon, Dr. Ribera. 7. Vascular surgeon, Dr. Dickinson. 8. Primary care provider, Dr. Mosqueda CURRENT MEDICATIONS: 1. Spironolactone 25 mg daily. 2. Zofran every 6 hours if needed for nausea. 3. Advair 250/50 Diskus one puff inhaled b.i.d. 4. Vitamin 3 D 1000 units twice daily. 5.. Potassium chloride 8 mEq every other day. 6. Miralax 17 grams daily. 7. Namenda 5 mg twice daily. 8. Mucinex 600 mg twice daily as needed. 9. Lasix 40 mg every other day twice daily. 10. Evista 60 mg daily. 11. Isosorbide mononitrate 30 mg daily. 12. Clonazepam 0.5 mg b.i.d. 13. Carvedilol 6.25 mg b.i.d. 14. Lipitor 20 mg at bedtime. 15. Enteric-coated aspirin 325 mg daily. 16. Aricept 23 mg at bedtime. 17. Proventil nebulizers 2.5 mg inhaled a.c. and h.s. 18. Tylenol 1000 mg every 6 hours p.r.n. FAMILY HISTORY: The patient's father at age 66 from coronary artery disease. Mother at age 80 from normal causes. SOCIAL HISTORY: The patient is retired. She does live at [facility]. She is . She has no children. She has a history of previous cigarette smoking , but quit many years previously. She denies any alcohol or illicit drug use. REVIEW OF SYSTEMS: CONSTITUTIONAL: Denies any fevers, chills, or unintentional weight loss or weight gain. HEENT: Somewhat hard of hearing, but has no visual disturbances noted. RESPIRATORY: No noted shortness of breath or cough. CARDIOVASCULAR: Denies chest pain or palpitations. No syncopal episodes. GASTROINTESTINAL: Denies nausea or vomiting. No diarrhea or bloody stools. GENITOURINARY: Denies dysuria. EXTREMITIES: As noted in history of present illness, bilateral lower extremity edema with cellulitis. NEUROLOGIC: Denies syncopal episodes or neurological deficits. PHYSICAL EXAMINATION: VITAL SIGNS: Temperature 97.7, pulse 55, blood pressure 108/59, respirations 16, 02 saturation 98% on room air. Admission weight 53.8 kg. GENERAL: The patient is alert, well-nourished, well-hydrated. She appears to be in no acute distress. HEENT: Tympanic membranes clear bilaterally. Oropharynx is pink and moist without any lesions. NECK: Supple, nontender. No jugular venous distention noted. CHEST: Lungs clear to auscultation bilaterally without any rhonchi, wheezes, or rales, just slightly diminished towards the bases. CARDIOVASCULAR: Regular rate and rhythm without any appreciable murmurs, gallops, or rubs. ABDOMEN: Soft, nontender. Positive bowel sounds. EXTREMITIES: There is no cyanosis or clubbing. On the right reyes there is noted a 2 inch long by half inch width red eschar area with an inch in tunnel undermining with rolled edges, granulated, sloughing with some eschar. There is a small red area on the back side of the posterior calf that measures 0.5 x 0.5 inches. The right calf is notable for an open wound that is 2 inches by 3 inches with some sloughing and eschar and granulation with 0.3 inch tunneling. The left leg has similar appearance of wound that measure 2 x 2 inches. Both legs are notably edematous with erythema. Distal pulses are weak but palpable. NEUROLOGIC: The patient is alert and oriented times three. Cranial nerves II- XII are grossly intact. Facial features are symmetrical. Extraocular movements are within normal limits. There are no notable motor deficits. LABORATORY: White count 7.6 with hemoglobin 11.7, hematocrit 36.9, platelet count 210,000, differential showed no left shift on admission. Coagulation studies showed a PT of 11.0, PTT of 27.4. Chemistries showed normal electrolytes with potassium 4.6, BUN 41, creatinine 1.73. Glucose 116, liver functions within normal limits. BNP elevated at 659. Urinalysis showed just a trace of blood on dipstick but no other abnormalities. Microscopic was within normal limits. MICROBIOLOGY: Blood cultures are pending. Wound cultures of both legs are pending. RADIOLOGY: Lower extremity Doppler bilateral studies for DVT pending. ASSESSMENT: 1. Bilateral lower extremity edema with stasis ulcers from poor peripheral circulation with a history of peripheral vascular disease with multiple open areas, now requiring initiation of parenteral antibiotics for treatment with cultures currently pending with suspected MRSA as patient resides at a local long-term care facility. 2. Chronic renal failure stage 4 with a normal potassium at time of admission with baseline creatinine being between 1.4 and 1.7, 3. History of congestive heart failure with last ejection fraction in 2016 showing 45% on admission, unknown etiology with BNP currently elevated on admission but no overt signs of pulmonary edema. 4. History of hypoparathyroidism. 5. Mild Alzheimer's, on Aricept. 6. History of pulmonary embolism in 2007. 7. Chronic obstructive pulmonary disease without any evidence of exacerbation. 8. History of lymphedema. 9. History of osteoporosis. 10. History of extensive peripheral vascular disease contributing to #1. PLAN: The patient will be directly admitted from Dr. Mosqueda's office for initiation of parenteral antibiotics to include initially vancomycin with cultures of both wounds on the legs pending further target antibiotic therapy. Will provide her with wound care, initially with Hibiclens and wet-to-dry dressings on the areas and plan to consult with Dr. Ribera in the morning to assist with further management of wound care. She will have her legs elevated to help with decrease of the edema. Will start her on DVT prophylaxis as she has a history of previous pulmonary embolism, will do this per protocol. Will plan to reevaluate and follow her labs closely. Will also start her on some IV fluids to maintain her renal function with the vancomycin but cautiously with the elevated BNP and history of congestive heart failure and currently will run half normal saline with 20 of potassium at 60 an hour. Will anticipate length of stay to be 2 to 3 days pending clinical resolution. Until the, we will continue to monitor the patient closely and treat appropriately. Once she is clinically able to be discharged, continue with antibiotic therapy in outpatient setting. She will need close followup with Dr. Mosqueda, her primary care physician. #[id number] [facility]
[2016-06-30] MEDS ORDERED: SODIUM CHLORIDE 0.9% (FLUSH) 10 ML SYG IV PRN (12:19)
[2016-06-30] MEDS ORDERED: ACETAMINOPHEN 325 MG TAB PO PRN (12:32)
[2016-06-30] MEDS ORDERED: ONDANSETRON INJ 4 MG/2 ML VIAL IV PRN (12:43)
[2016-06-30] MEDS ORDERED: FUROSEMIDE 40 MG TAB PO SCH (13:00)
--- NOTE | 2016-06-30 13:55 | US ---
EXAM DESCRIPTION: Venous,Lower Extremity RT CLINICAL HISTORY: 80 years,Female,devaughn LE edema carlos cellulitis COMPARISON: None TECHNIQUE: Multiple duplex Doppler ultrasound images were performed of the right lower extremity deep veins. FINDINGS: The common femoral vein to the calf vessels demonstrates good compression, augmentation, and no thrombus formations. There appears be an old partial thrombus seen in the distal superficial femoral vein. Surrounding soft tissues unremarkable. IMPRESSION: Old partial thrombus/wall thickening of the distal right superficial femoral vein. But no acute deep vein thrombus seen. Electronically signed by: Spencer Hays MD 06/30/2016 1:54 PM CDT
--- NOTE | 2016-06-30 15:26 | US ---
EXAM DESCRIPTION: Venous,Lower Extremity LT CLINICAL HISTORY: 80 years, Female, devaughn LE edema carlos cellulitis COMPARISON: None TECHNIQUE: Duplex venous ultrasound of the left lower extremity was performed. FINDINGS: The left lower extremity veins are completely compressible and demonstrate physiologic responses augmentation maneuvers. Color Doppler images show no intraluminal filling defect. IMPRESSION: No evidence of left lower extremity DVT. Electronically signed by: Paul Augustin MD 06/30/2016 3:26 PM CDT
[2016-06-30] MEDS: ALBUTEROL SULFATE 2.5 MG/3 ML VIAL NEB SCH ×2 (17:00→20:35)
[2016-06-30] MEDS: FUROSEMIDE 40 MG TAB PO SCH (17:43)
[2016-06-30] MEDS: IV SET AND CAP CHANGE INJ INJ SCH (17:43)
[2016-06-30] MEDS ORDERED: FLUTICASONE/SALMETEROL 250/50 14 PUFF/17 GM INH INH ONE (18:19)
[2016-06-30] MEDS ORDERED: VANCOMYCIN HCL INJ 1,000 MG VIAL IVPB ONE (20:00)
[2016-06-30] MEDS ORDERED: SODIUM CHL 0.9% 250ML (AVIVA) 250 ML IVPB ONE (20:02)
[2016-06-30] MEDS: FLUTICASONE/SALMETEROL 250/50 14 PUFF/17 GM INH INH SCH (20:35)
[2016-06-30] MEDS: DONEPEZIL HYDROCHLORIDE PO SCH (21:26)
[2016-06-30] MEDS: MEMANTINE 10 MG TAB PO SCH (21:28)
[2016-06-30] MEDS: ATORVASTATIN 20 MG TAB PO SCH (21:29)
[2016-06-30] MEDS: CHOLECALCIFEROL 2,000 IU TAB PO SCH (21:29)
[2016-06-30] MEDS: CARVEDILOL 3.125 MG TAB PO SCH (21:30)
[2016-06-30] MEDS: SODIUM CHLORIDE 0.9% (FLUSH) 10 ML SYG IV SCH (21:30)
--- NOTE | 2016-06-30 22:13 | PCM.CORE ---
Physician DVT/VTE - Nurse DVT Assessment & Total Each Risk Factor Represents 3 Points: Age over 75 years, Medical PT with Hx of [place], CHF, Severe infection/sepsis Each Risk Factor Represents 2 Points: Malignancy (present/past) Each Risk Factor Represents 1 Point: Medical PT at Bed Rest Each Risk Factor is 1 Point: Varicose Veins/Edema Legs DVT Assessment Score: 10 - 5 or more Very High Risk Treatments: Early Ambulation *, Sequential Compression Device Pharmacological: Enoxaparin 40mg SQ Daily
[2016-06-30] MEDS ORDERED: ENOXAPARIN SODIUM 40 MG/0.4 ML SYG SUBCU SCH (22:30)
[2016-07-01] MEDS: KCL 20MEQ/0.45% NS 1,000 ML IVS PRN ×2 (01:00→18:18)
[2016-07-01] MEDS ORDERED: VANCOMYCIN PER PHARMACY INJ SCH (08:00)
[2016-07-01] MEDS: ALBUTEROL SULFATE 2.5 MG/3 ML VIAL NEB SCH ×4 (08:11→20:41)
[2016-07-01] MEDS: FLUTICASONE/SALMETEROL 250/50 14 PUFF/17 GM INH INH SCH ×2 (08:11→20:46)
[2016-07-01] MEDS ORDERED: CHLORHEXIDINE GLUCONATE 4 % 15 ML UD TOP ONE (08:11)
[2016-07-01] MEDS: NON-FORMULARY MEDICATION 1 EA MIS (Raloxifene Hcl [Evista] 60 MG) PO SCH (08:55)
[2016-07-01] MEDS: CHLORHEXIDINE GLUCONATE 4 % 15 ML UD TOP SCH (08:55)
[2016-07-01] MEDS: POLYETHYLENE GLYCOL 3350 17 GM PCKT PO SCH (08:56)
[2016-07-01] MEDS: CARVEDILOL 3.125 MG TAB PO SCH ×3 (08:56→20:37)
[2016-07-01] MEDS: MEMANTINE 10 MG TAB PO SCH ×2 (08:56→20:37)
[2016-07-01] MEDS: ISOSORBIDE MONONITRATE (IMDUR) 30 MG TAB PO SCH (08:56)
[2016-07-01] MEDS: SPIRONOLACTONE 25 MG TAB PO SCH (08:56)
[2016-07-01] MEDS: CHOLECALCIFEROL 2,000 IU TAB PO SCH ×2 (08:56→20:37)
[2016-07-01] MEDS: SODIUM CHLORIDE 0.9% (FLUSH) 10 ML SYG IV SCH ×2 (08:57→20:46)
[2016-07-01] MEDS ORDERED: levoFLOXacin 500MG IV 500 MG in PREMIX BAG 1 BAG IVPB ONE (10:00)
[2016-07-01] MEDS ORDERED: cefTRIAXone SODIUM 1 GM in SODIUM CHL 0.9% 50ML MIN-BAG+ 50 ML IVPB SCH (10:30)
[2016-07-01] MEDS ORDERED: levoFLOXacin 500MG IV 100 ML IVPB ONE (11:04)
[2016-07-01] MEDS: WARFARIN SODIUM 2.5 MG TAB PO SCH (13:08)
--- NOTE | 2016-07-01 13:12 | CONS ---
DATE OF CONSULTATION: 07/01/16 HISTORY OF PRESENT ILLNESS: The patient is an 80-year-old female who I have known for some time. She has multiple health issues. I have been asked to help with a wound on her right leg. This was apparently secondary to minor trauma, but she has pain, redness and swelling and workup so far has revealed a venous thrombus in the right leg. PAST MEDICAL HISTORY: 1. Congestive heart failure. 2. Hyperlipidemia. 3. Peripheral vascular occlusive disease. 4. History of lymphedema. 5. Renal failure. 6. Osteoporosis. 7. She was treated by me for breast cancer in 2013. 8. Known Alzheimer's dementia. 9. Chronic obstructive pulmonary disease. PAST SURGICAL HISTORY: 1. Last colonoscopy in 2007. CURRENT MEDICATIONS: Multiple and noted in the History and Physical and nursing documentation. FAMILY HISTORY: Positive for coronary artery disease. SOCIAL HISTORY: The patient is a retired . She lives in [facility]. She smoked, but quit many years ago. She has no history of alcohol use. REVIEW OF SYSTEMS: There has been no significant change in her health other than the painful, swollen leg with the ulcerations. PHYSICAL EXAMINATION: GENERAL: The patient is awake, alert, cooperative, eating her lunch. She is in no acute distress. VITAL SIGNS: The patient is currently afebrile, normotensive. HEENT: Sclerae nonicteric. BACK: Without CVA tenderness. ABDOMEN: Soft and benign. EXTREMITIES: Left leg reveals minimal swelling. There is a small laceration over the tibia in the mid leg on the left. The right leg shows two ulcerations or lesions, one anterior and one laterally. They both have some discharge. They have surrounding erythema and there is a significant 2 to 3+ edema in the right lower extremity. Peripheral pulses are not palpable in either dorsalis pedis. LABORATORY: Normal white count on admission with a normal differential. Hemoglobin 11.7. Platelet count 210,000. Chemistries reveal potassium 4.6, creatinine 1.73. BNP on admission was 669. Liver functions within normal limits. MICROBIOLOGY: So far, this is growing gram positive cocci consistent with staph , but sensitivities are pending. Blood cultures are negative at this point. ASSESSMENT: 1. Nonhealing lesions, growing staph on her right leg with edema and cellulitis. 2. Thrombus in her right femoral vein. Whether this is new or not is uncertain. 3. History of peripheral vascular occlusive disease and nonpalpable dorsalis pedis pulses. RECOMMENDATION: Dressing changes. Continue antibiotics pending culture results. I recommended we get arterial Doppler studies to document her arterial flow to these areas to make a prognosis on the ability to heal these wounds. We will follow this patient with you. #[id number] [facility]
--- NOTE | 2016-07-01 14:36 | US ---
EXAM DESCRIPTION: Extremity,Lower Alfonso Arteries CLINICAL HISTORY: 80 years Female, PVD with alfonso LE cellulitis and edema COMPARISON: None. TECHNIQUE: 2-D grayscale and color arterial duplex Doppler evaluation of the bilateral lower extremities is performed. FINDINGS: Moderate scattered calcified plaque of the arterial vasculature are seen. There is mostly monophasic flow throughout the arterial vasculature from proximal to distal. No elevated velocities are seen. No arterial occlusion is appreciated. IMPRESSION: Moderate calcific atherosclerotic disease of the bilateral lower extremities is seen. Diffuse monophasic flow throughout the lower extremity suggest proximal aortoiliac stenosis or occlusion. Consider further evaluation with CTA or MRA. Electronically signed by: Erik Aguiar MD 07/01/2016 2:35 PM CDT
[2016-07-01] MEDS: HYDROcodone 5MG/APAP 325MG 1 EA TAB PO PRN (20:37)
[2016-07-01] MEDS: ATORVASTATIN 20 MG TAB PO SCH (20:37)
[2016-07-01] MEDS: ENOXAPARIN SODIUM 30 MG/0.3 ML SYG SUBCU SCH (20:38)
[2016-07-01] MEDS: DONEPEZIL HYDROCHLORIDE PO SCH (20:39)
[2016-07-02] MEDS: POTASSIUM CHLORIDE 8 MEQ TAB PO SCH (08:02)
[2016-07-02] MEDS: FLUTICASONE/SALMETEROL 250/50 14 PUFF/17 GM INH INH SCH ×2 (08:29→20:40)
[2016-07-02] MEDS: ALBUTEROL SULFATE 2.5 MG/3 ML VIAL NEB SCH ×4 (08:29→20:40)
--- NOTE | 2016-07-02 09:01 | PN ---
SUPERVISING PHYSICIAN: Dago Choudhury MD DATE: 07/01/16 SUBJECTIVE: The patient is feeling well this morning. Her legs are looking somewhat better after initiation of antibiotic therapy. She has not had any nausea or vomiting or diarrhea. She remains afebrile. OBJECTIVE: VITAL SIGNS: Temperature 97.1. Pulse 59. Blood pressure 126/70. Respirations 16. O2 saturation 99% on room air. I&Os show negative balance of 640 with 1010 in, 1650 out. Weight 53.8 kg. CHEST: Lungs clear to auscultation bilaterally. HEART: Regular rate and rhythm. ABDOMEN: Soft, nontender. Positive bowel sounds. EXTREMITIES: Right leg significant for continued ulcerations, one on the anterior fibula area and one lateral with some discharge noted. There is erythema noted around both areas with 2+ edema which is significantly decreased from previous days. Peripheral pulses are still difficult to assess. We will get a Doppler study. The left leg has minimal swelling compared to the right. There is a small ulceration overlying the tibia, mid leg. NEUROLOGIC: Alert and oriented times three. LABORATORY: White count on admission was within normal limits as well as chemistries. Plan to repeat laboratory studies in the morning. MICROBIOLOGY: RADIOLOGY: Venous Doppler studies of the lower extremities on the right leg per radiology interpretation indicate an old partial thrombus, wall thickening of the distal right superficial femoral vein, but no acute deep venous thrombosis is seen. The left lower extremity ultrasound per radiology interpretation showed no evidence of left lower extremity deep venous thrombosis. Arterial Doppler study of the lower extremities today revealed per radiology interpretation moderate calcific atherosclerotic disease of the bilateral lower extremities with flow suggesting proximal arterial iliac stenosis or occlusion with suggestion for CTA or MRA. ASSESSMENT: 1. Bilateral lower extremity edema with stasis ulcers from poor peripheral circulation with a history of peripheral vascular disease with multiple areas of ulceration on the right leg as well as a small area on the left leg with the patient having started on parenteral antibiotics to include Rocephin and vancomycin pending culture results. 2. Peripheral vascular insufficiency as documented on a recent arterial Doppler ultrasound with concern for a proximal aortoiliac stenosis or occlusion complicating healing process in regards to wound care as noted above. 3. Evidence of a old partial thrombus versus wall thickening of the right superficial femoral vein without any evidence of acute deep vein thrombus seen bilaterally with the patient stared on Lovenox based on renal function with bridging to Coumadin with initiation of Coumadin today at 2.5 mg with repeat PT daily in efforts to reach therapeutic levels. 4. Chronic renal failure, stage 4, with normal potassium at time of admission with baseline creatinine ranging from 1.4 to 1.7. 5. History of congestive heart failure with last ejection fraction in 2016 showing 45% of unknown etiology with BNP currently elevated on admission without any overt clinical signs of pulmonary edema. 6. History of hypothyroidism. 7. Mild Alzheimer's on Aricept. 8. History of pulmonary embolism in 2007. 9. Chronic obstructive pulmonary disease without evidence of exacerbation. 10. History of lymphedema. 11. History of osteoporosis. 12. History of extensive peripheral vascular disease contributing to #1 and supported by current findings on arterial Doppler studies. This certainly will complicate the healing process in regards to treatment of underlying ulcers on the right leg. PLAN: We will continue to monitor the patient closely today. We will start labs in the morning to include PT, CBC, and BMP. I did start her on Coumadin today at 2.5 mg and we will need to closely may need her INR as we bridge her from Lovenox to Coumadin for treatment of underlying DVTs as evidenced on current Doppler studies. Her Lovenox will be renally dosed as she does have poor renal function and advanced age. She was started on antibiotics to include vancomycin per pharmacy protocol. We will add to this additional antibiotic coverage with Levaquin, based off renal function. Dr. Ribera was gracious enough to consult and provide help with wound care. We will continue to follow wound care recommendations per Dr. Ribera. We will monitor fluid status closely. We will anticipate length of stay to be at least another 2 to 3 days with initiation therapy today in addition to vancomycin and Levaquin and await final culture results which will probably be available tomorrow morning, at which time we can further target antibiotic therapy accordingly. Until discharge, we will continue to monitor the patient closely and treat appropriately. Once discharged, she will need close clinical followup with Dr. Mosqueda, her primary care provider. #[id number] [facility]
[2016-07-02] MEDS ORDERED: levoFLOXacin 250MG IV 50 ML IVPB ONE (09:03)
[2016-07-02] MEDS: SPIRONOLACTONE 25 MG TAB PO SCH (09:26)
[2016-07-02] MEDS: POLYETHYLENE GLYCOL 3350 17 GM PCKT PO SCH (09:26)
[2016-07-02] MEDS: CHOLECALCIFEROL 2,000 IU TAB PO SCH ×2 (09:26→22:16)
[2016-07-02] MEDS: HYDROcodone 5MG/APAP 325MG 1 EA TAB PO PRN (09:26)
[2016-07-02] MEDS: MEMANTINE 10 MG TAB PO SCH ×2 (09:27→22:17)
[2016-07-02] MEDS: CHLORHEXIDINE GLUCONATE 4 % 15 ML UD TOP SCH (09:28)
[2016-07-02] MEDS: NON-FORMULARY MEDICATION 1 EA MIS (Raloxifene Hcl [Evista] 60 MG) PO SCH (09:28)
[2016-07-02] MEDS: ISOSORBIDE MONONITRATE (IMDUR) 30 MG TAB PO SCH (09:28)
[2016-07-02] MEDS: FUROSEMIDE 40 MG TAB PO SCH ×2 (09:28→17:51)
[2016-07-02] MEDS: CARVEDILOL 3.125 MG TAB PO SCH ×2 (09:28→22:17)
[2016-07-02] MEDS: SODIUM CHLORIDE 0.9% (FLUSH) 10 ML SYG IV SCH ×2 (09:29→23:42)
[2016-07-02] MEDS ORDERED: levoFLOXacin 250MG IV 250 MG in PREMIX BAG 1 BAG IVPB SCH (10:00)
[2016-07-02] MEDS: WARFARIN SODIUM 2.5 MG TAB PO SCH (12:19)
[2016-07-02] MEDS ORDERED: ASPIRIN TABLET 325 MG TAB PO ONE (12:29)
[2016-07-02] MEDS ORDERED: WARFARIN SODIUM 3 MG TAB PO ONE (12:32)
[2016-07-02] MEDS: KCL 20MEQ/0.45% NS 1,000 ML IVS PRN (13:56)
[2016-07-02] MEDS: DOXYCYCLINE HYCLATE CAP 100 MG CAP PO SCH ×2 (14:20→22:16)
--- NOTE | 2016-07-02 14:32 | PN ---
SUPERVISING PHYSICIAN: Dago Choudhury MD DATE: 07/02/16 SUBJECTIVE: The patient is lying in bed. She has no complaints of shortness of breath, chest pain, nausea or vomiting. She does complain of some soreness in her right lower leg. Dr. Ribera is in the room and has taken the dressing off and examined the wound. He states that the wound has slight improvement since yesterday as well as her edema is less. OBJECTIVE: VITAL SIGNS: Afebrile. Heart rate 60. Blood pressure 132/69. Respiratory rate 22. O2 saturation 97%. LUNGS: Essentially clear to auscultation bilaterally. CARDIAC: Regular rate and rhythm. ABDOMEN: Soft, nontender, nondistended. Bowel sounds are positive. EXTREMITIES: Her right lower leg has several ulcerations on the lower leg, one is on the anterior fibular area and one is lateral. They both have discharge noted. There is erythema surrounding the ulcerations as well as +2 edema to her lower leg. The left leg has no cyanosis, clubbing or edema. NEUROLOGIC: Awake, alert and oriented to person and place only. LABORATORY: WBC 6, hemoglobin slightly decreased to 10.5, hematocrit slightly decreased to 33.2. INR 1.09. Sodium 140, potassium 4.4, chloride 112, carbon dioxide 23, BUN 30, creatinine 1.6, calcium 8.2. Wound culture is positive for MRSA. It is sensitive to vancomycin, but it is not sensitive to levofloxacin. All other labs and films have been reviewed via the EMR. ASSESSMENT: 1. Bilateral lower extremity edema with stasis ulcers from poor peripheral circulation with a history of peripheral vascular disease with two areas of ulceration on the right leg as well as a small area on the left leg with the patient presently on Levaquin and vancomycin. Culture results shows methicillin-resistant Staphylococcus aureus. 2. Peripheral vascular insufficiency as documented on a recent arterial Doppler ultrasound with concern for a proximal aortoiliac stenosis or occlusion complicating healing process in regards to wound care as noted above. 3. Evidence of a old partial thrombus versus wall thickening of the right superficial femoral vein without any evidence of acute deep vein thrombus seen bilaterally with the patient stared on Lovenox based on renal function with bridging to Coumadin .Will discontinue Lovenox when INR is therapeutic. 4. Chronic renal failure, stage 4, with normal potassium at time of admission with baseline creatinine ranging from 1.4 to 1.7. 5. History of congestive heart failure with last ejection fraction in 2016 showing 45% of unknown etiology with BNP currently elevated on admission without any overt clinical signs of pulmonary edema. 6. History of hypothyroidism. 7. Mild Alzheimer's on Aricept. 8. History of pulmonary embolism in 2007. 9. Chronic obstructive pulmonary disease without evidence of exacerbation. 10. History of lymphedema. 11. History of osteoporosis. 12. History of extensive peripheral vascular disease contributing to #1 and supported by current findings on arterial Doppler studies. This certainly will complicate the healing process in regards to treatment of underlying ulcers on the right leg. PLAN: I will give the patient an extra dose of Coumadin today and repeat PT/ INR in the morning. I have also ordered routine lab including a magnesium. I have discontinued her Levaquin and will change her to doxycycline. I will defer to Dr. Ribrea as far as the wound care and will discuss with him her discharge plan. Otherwise, the patient's right leg is to be elevated above the heart at all times. Continue good pulmonary toilet. Followup as needed. Dr. Choudhury is the collaborating physician and available for consultation. #[id number] [facility]
[2016-07-02] MEDS: BIFIDOBACTERIUM INFANTIS 4 MG CAP PO SCH (15:13)
[2016-07-02] MEDS ORDERED: VANCOMYCIN HCL INJ 750 MG in SODIUM CHLORIDE 0.9% 250ML 250 ML IVPB SCH (21:00)
[2016-07-02] MEDS: ENOXAPARIN SODIUM 30 MG/0.3 ML SYG SUBCU SCH (21:10)
[2016-07-02] MEDS ORDERED: VANCOMYCIN HCL INJ 1,000 MG VIAL IVPB ONE (22:03)
[2016-07-02] MEDS ORDERED: SODIUM CHLORIDE 0.9% 250ML 250 ML ONE (22:03)
[2016-07-02] MEDS: ATORVASTATIN 20 MG TAB PO SCH (22:17)
[2016-07-02] MEDS: VANCOMYCIN HCL INJ 750 MG in SODIUM CHLORIDE 0.9% 250ML 250 ML IVPB SCH (22:18)
[2016-07-02] MEDS: DONEPEZIL HYDROCHLORIDE PO SCH (23:42)
[2016-07-03] MEDS: CHOLECALCIFEROL 2,000 IU TAB PO SCH ×2 (08:54→20:45)
[2016-07-03] MEDS: MEMANTINE 10 MG TAB PO SCH ×2 (08:55→20:45)
[2016-07-03] MEDS: ISOSORBIDE MONONITRATE (IMDUR) 30 MG TAB PO SCH (08:56)
[2016-07-03] MEDS: SPIRONOLACTONE 25 MG TAB PO SCH (08:56)
[2016-07-03] MEDS: DOXYCYCLINE HYCLATE CAP 100 MG CAP PO SCH ×2 (08:56→20:45)
[2016-07-03] MEDS: BIFIDOBACTERIUM INFANTIS 4 MG CAP PO SCH (08:57)
[2016-07-03] MEDS: CARVEDILOL 3.125 MG TAB PO SCH ×2 (08:57→20:45)
[2016-07-03] MEDS: POLYETHYLENE GLYCOL 3350 17 GM PCKT PO SCH (08:58)
[2016-07-03] MEDS: CHLORHEXIDINE GLUCONATE 4 % 15 ML UD TOP SCH (08:58)
[2016-07-03] MEDS: SODIUM CHLORIDE 0.9% (FLUSH) 10 ML SYG IV SCH ×2 (08:58→20:46)
[2016-07-03] MEDS: NON-FORMULARY MEDICATION 1 EA MIS (Raloxifene Hcl [Evista] 60 MG) PO SCH (09:00)
[2016-07-03] MEDS: FLUTICASONE/SALMETEROL 250/50 14 PUFF/17 GM INH INH SCH ×2 (09:00→20:39)
[2016-07-03] MEDS: ALBUTEROL SULFATE 2.5 MG/3 ML VIAL NEB SCH ×4 (09:00→20:38)
[2016-07-03] MEDS: KCL 20MEQ/0.45% NS 1,000 ML IVS PRN (09:28)
[2016-07-03] MEDS ORDERED: WARFARIN SODIUM 5 MG TAB PO ONE (13:44)
[2016-07-03] MEDS: WARFARIN SODIUM 2.5 MG TAB PO SCH (14:08)
[2016-07-03] MEDS: IV SET AND CAP CHANGE INJ INJ SCH (14:09)
[2016-07-03] MEDS ORDERED: SODIUM CHLORIDE 0.9% 250ML 250 ML ONE (20:02)
[2016-07-03] MEDS ORDERED: VANCOMYCIN HCL INJ 1,000 MG VIAL IVPB ONE (20:03)
[2016-07-03] MEDS: ENOXAPARIN SODIUM 30 MG/0.3 ML SYG SUBCU SCH (20:45)
[2016-07-03] MEDS: ATORVASTATIN 20 MG TAB PO SCH (20:45)
[2016-07-03] MEDS: DONEPEZIL HYDROCHLORIDE PO SCH (20:46)
[2016-07-03] MEDS: VANCOMYCIN HCL INJ 750 MG in SODIUM CHLORIDE 0.9% 250ML 250 ML IVPB SCH (21:25)
--- NOTE | 2016-07-03 22:16 | PN ---
DATE: 07/03/16 SUPERVISING PHYSICIAN: Aakash Choudhury M.D. SUBJECTIVE: The patient is lying in his bed. She is eating her breakfast. She has no complaints of shortness of breath, chest pain, nausea or vomiting. She continues complaints of soreness in that right leg. I have encouraged her to keep it elevated whenever she is in bed. OBJECTIVE: VITAL SIGNS: She is afebrile, heart rate 60, blood pressure 110/68, respiratory rate 20, O2 sat is 96%. LUNGS: Essentially clear to auscultation bilaterally. CARDIAC: Regular rate and rhythm. ABDOMEN: Soft, nondistended, non-tender. Bowel sounds are positive. EXTREMITIES: Her right lower leg has several ulcerations on the lower leg. One is on the anterior fibular area and one is on the lateral surface. There is a very minimal amount of drainage noted. There is also a small amount of erythema surrounding the ulceration and she has +1 edema to the right lower leg. It is much improved since yesterday. The left leg has no cyanosis, clubbing or edema. NEUROLOGIC: She is awake, alert and oriented times three. LABORATORY: Sodium 139, potassium 4.6, chloride 111, carbon dioxide 23, BUN 28 , creatinine 1.6, calcium 8.3. WBC 7, hemoglobin 10.9, hematocrit 34.2. Preliminary blood cultures show no growth after 3 days. All other labs and films have been reviewed via the EMR. ASSESSMENT: 1. Bilateral lower extremity edema with stasis ulcers from poor peripheral circulation with a history of peripheral vascular disease with two areas of ulceration on the right leg as well as a small area on the left leg with the patient presently on doxycycline and vancomycin. Culture results shows methicillin-resistant Staphylococcus aureus. 2. Peripheral vascular insufficiency as documented on a recent arterial Doppler ultrasound with concern for a proximal aortoiliac stenosis or occlusion complicating healing process in regards to wound care as noted above. 3. Evidence of a old partial thrombus versus wall thickening of the right superficial femoral vein without any evidence of acute deep vein thrombus seen bilaterally with the patient stared on Lovenox based on renal function with bridging to Coumadin.Will discontinue Lovenox when INR is therapeutic. 4. Chronic renal failure, stage 4, with normal potassium at time of admission with baseline creatinine ranging from 1.4 to 1.7. 5. History of congestive heart failure with last ejection fraction in 2016 showing 45% of unknown etiology with BNP currently elevated on admission without any overt clinical signs of pulmonary edema. 6. History of hypothyroidism. 7. Mild Alzheimer's on Aricept. 8. History of pulmonary embolism in 2007. 9. Chronic obstructive pulmonary disease without evidence of exacerbation. 10. History of lymphedema. 11. History of osteoporosis. 12. History of extensive peripheral vascular disease contributing to #1 and supported by current findings on arterial Doppler studies. This certainly will complicate the healing process in regards to treatment of underlying ulcers on the right leg. PLAN: I have increased the patient's Coumadin today and have repeated a PT and INR in the morning. She will continue on the doxycycline as well as the vancomycin. Dr. Ribera is following her wound care and I will defer to him for discharge and wound care, but I have talked to Chey Trevino, Assistant [employer], and she will most likely be discharged from the hospital and admitted to Swing Bed for wound care and IV antibiotics hopefully tomorrow or the next day. Again, I will defer to Dr. Ribera for that. Will continue to encourage the patient to elevate her legs. Physical Therapy is also working with her. We will continue to monitor the patient closely and followup as needed. Dr. Choudhury is the collaborating physician available for consultation. #[id number] [facility]
[2016-07-04] MEDS: KCL 20MEQ/0.45% NS 1,000 ML IVS PRN (04:02)
[2016-07-04] MEDS: POTASSIUM CHLORIDE 8 MEQ TAB PO SCH (08:00)
[2016-07-04] MEDS: ALBUTEROL SULFATE 2.5 MG/3 ML VIAL NEB SCH ×4 (08:25→20:24)
[2016-07-04] MEDS: FLUTICASONE/SALMETEROL 250/50 14 PUFF/17 GM INH INH SCH ×2 (08:25→20:24)
[2016-07-04] MEDS: MEMANTINE 10 MG TAB PO SCH ×2 (08:40→21:15)
[2016-07-04] MEDS: FUROSEMIDE 40 MG TAB PO SCH ×2 (08:40→20:07)
[2016-07-04] MEDS: SPIRONOLACTONE 25 MG TAB PO SCH (08:40)
[2016-07-04] MEDS: CARVEDILOL 3.125 MG TAB PO SCH ×2 (08:40→21:16)
[2016-07-04] MEDS: BIFIDOBACTERIUM INFANTIS 4 MG CAP PO SCH (08:40)
[2016-07-04] MEDS: DOXYCYCLINE HYCLATE CAP 100 MG CAP PO SCH ×2 (08:40→21:15)
[2016-07-04] MEDS: CHOLECALCIFEROL 2,000 IU TAB PO SCH ×2 (08:42→21:16)
[2016-07-04] MEDS: NON-FORMULARY MEDICATION 1 EA MIS (Raloxifene Hcl [Evista] 60 MG) PO SCH (08:42)
[2016-07-04] MEDS: CHLORHEXIDINE GLUCONATE 4 % 15 ML UD TOP SCH (08:45)
[2016-07-04] MEDS: POLYETHYLENE GLYCOL 3350 17 GM PCKT PO SCH (08:45)
[2016-07-04] MEDS: SODIUM CHLORIDE 0.9% (FLUSH) 10 ML SYG IV SCH ×2 (09:00→21:21)
[2016-07-04] MEDS ORDERED: WARFARIN SODIUM 5 MG TAB PO ONE (19:37)
[2016-07-04] MEDS: ISOSORBIDE MONONITRATE (IMDUR) 30 MG TAB PO SCH (20:10)
--- NOTE | 2016-07-04 20:18 | PN ---
DATE: 07/04/16 SUPERVISING PHYSICIAN: Dago Choudhury MD SUBJECTIVE: The patient is sitting up in her hospital bed. She is eating her breakfast. She denies any shortness of breath, chest pain, abdominal pain, nausea or vomiting. She has no complaints about the wounds on her right lower leg. Her biggest concern is when she is going to be discharged back to the care home. OBJECTIVE: VITAL SIGNS: She is afebrile, heart rate 61, blood pressure 120/62, respiratory rate 20, O2 sat 97%. RESPIRATORY: Essentially clear to auscultation bilaterally. CARDIAC: Regular rate and rhythm. ABDOMEN: Soft, nondistended, non-tender. Bowel sounds are positive. EXTREMITIES: Right lower leg has several ulcerations on the lower leg, one is on the anterior fibular area and one is on the lateral surface. There is a very minimal amount of drainage noted. Today, there is no erythema surrounding the ulcerations and her edema to that right lower leg is just a trace. The left leg has no cyanosis , clubbing or edema. NEUROLOGIC: She is awake, alert and oriented times three, although she does get confused at times. LABORATORY: CBC is basically within normal limits. Hemoglobin has stabilized at 10.5 and hematocrit is stabilized at 32.9. INR is 1.56. Chemistries show chloride 116, BUN 28, creatinine 1.34, calcium 8.3. All other labs and films have been reviewed via the EMR. ASSESSMENT: 1. Bilateral lower extremity edema with stasis ulcers from poor peripheral circulation with a history of peripheral vascular disease with two areas of ulceration on the right leg as well as a small area on the left leg with the patient presently on doxycycline and vancomycin. Culture results shows methicillin-resistant Staphylococcus aureus. 2. Peripheral vascular insufficiency as documented on a recent arterial Doppler ultrasound with concern for a proximal aortoiliac stenosis or occlusion complicating healing process in regards to wound care as noted above. 3. Evidence of a old partial thrombus versus wall thickening of the right superficial femoral vein without any evidence of acute deep vein thrombus seen bilaterally with the patient stared on Lovenox based on renal function with bridging to Coumadin.Will discontinue Lovenox when INR is therapeutic. 4. Chronic renal failure, stage 4, with normal potassium at time of admission with baseline creatinine ranging from 1.4 to 1.7. 5. History of congestive heart failure with last ejection fraction in 2016 showing 45% of unknown etiology with BNP currently elevated on admission without any overt clinical signs of pulmonary edema. 6. History of hypothyroidism. 7. Mild Alzheimer's on Aricept. 8. History of pulmonary embolism in 2007. 9. Chronic obstructive pulmonary disease without evidence of exacerbation. 10. History of lymphedema. 11. History of osteoporosis. 12. History of extensive peripheral vascular disease contributing to #1 and supported by current findings on arterial Doppler studies. This certainly will complicate the healing process in regards to treatment of underlying ulcers on the right leg. PLAN: I have increased the patient's Coumadin to 6 mg today and will check her INR tomorrow. Dr. Ribera and I examined her wounds together. He has recommended that she continue 1 more day on the IV vancomycin as well as the doxycycline. We will reevaluate her tomorrow and most likely she will be discharged from the hospital and admitted to Swing Bed for wound care as well as physical therapy. I have already consulted Physical Therapy. At this point we will continue to monitor the patient closely and followup as needed. Dr. Choudhury is the collaborating physician and available for consultation. #[id number] [facility]
[2016-07-04] MEDS ORDERED: SODIUM CHLORIDE 0.9% 250ML 250 ML ONE (20:25)
[2016-07-04] MEDS ORDERED: VANCOMYCIN HCL INJ 1,000 MG VIAL IVPB ONE (20:26)
[2016-07-04] MEDS ORDERED: ATORVASTATIN 10 MG TAB ONE (20:26)
[2016-07-04] MEDS: DONEPEZIL HYDROCHLORIDE PO SCH (21:14)
[2016-07-04] MEDS: ATORVASTATIN 20 MG TAB PO SCH (21:20)
[2016-07-04] MEDS: VANCOMYCIN HCL INJ 750 MG in SODIUM CHLORIDE 0.9% 250ML 250 ML IVPB SCH (21:21)
[2016-07-04] MEDS: ENOXAPARIN SODIUM 30 MG/0.3 ML SYG SUBCU SCH (21:22)
[2016-07-05] MEDS: ALBUTEROL SULFATE 2.5 MG/3 ML VIAL NEB SCH ×3 (08:30→16:12)
[2016-07-05] MEDS: FLUTICASONE/SALMETEROL 250/50 14 PUFF/17 GM INH INH SCH (08:30)
[2016-07-05 09:47] VITALS: O2SAT 100
[2016-07-05] MEDS: CARVEDILOL 3.125 MG TAB PO SCH (10:00)
[2016-07-05] MEDS: BIFIDOBACTERIUM INFANTIS 4 MG CAP PO SCH (10:00)
[2016-07-05] MEDS: CHLORHEXIDINE GLUCONATE 4 % 15 ML UD TOP SCH (10:00)
[2016-07-05] MEDS: SPIRONOLACTONE 25 MG TAB PO SCH (10:00)
[2016-07-05] MEDS: SODIUM CHLORIDE 0.9% (FLUSH) 10 ML SYG IV SCH (10:01)
[2016-07-05] MEDS: DOXYCYCLINE HYCLATE CAP 100 MG CAP PO SCH (10:01)
[2016-07-05] MEDS: NON-FORMULARY MEDICATION 1 EA MIS (Raloxifene Hcl [Evista] 60 MG) PO SCH (10:01)
[2016-07-05] MEDS: CHOLECALCIFEROL 2,000 IU TAB PO SCH (10:01)
[2016-07-05] MEDS: MEMANTINE 10 MG TAB PO SCH (10:01)
[2016-07-05] MEDS: ISOSORBIDE MONONITRATE (IMDUR) 30 MG TAB PO SCH (10:01)
[2016-07-05] MEDS: POLYETHYLENE GLYCOL 3350 17 GM PCKT PO SCH (10:01)
[2016-07-05 10:43] VITALS: BP 130/78; TEMP 97.6
[2016-07-05] MEDS: HYDROcodone 5MG/APAP 325MG 1 EA TAB PO PRN (10:50)
[2016-07-05] MEDS ORDERED: WARFARIN SODIUM 5 MG TAB PO SCH (12:00)
--- NOTE | 2016-07-05 18:19 | DS ---
SUPERVISING PHYSICIAN: Dago Choudhury M.D. DISCHARGE DIAGNOSIS: 1. Bilateral lower extremity edema with stasis ulcers from poor peripheral circulation with a history of peripheral vascular disease with two areas of ulceration on the right leg as well as a small area on the left leg with the patient presently on doxycycline and vancomycin. Culture results shows methicillin-resistant Staphylococcus aureus. 2. Peripheral vascular insufficiency as documented on a recent arterial Doppler ultrasound with concern for a proximal aortoiliac stenosis or occlusion complicating healing process in regards to wound care as noted above. 3. Evidence of a old partial thrombus versus wall thickening of the right superficial femoral vein without any evidence of acute deep vein thrombus seen bilaterally with the patient stared on Lovenox based on renal function with bridging to Coumadin.Will discontinue Lovenox when INR is therapeutic. 4. Chronic renal failure, stage 4, with normal potassium at time of admission with baseline creatinine ranging from 1.4 to 1.7. 5. History of congestive heart failure with last ejection fraction in 2015 showing 45% of unknown etiology with BNP currently elevated on admission without any overt clinical signs of pulmonary edema. 6. History of hypothyroidism. 7. Mild Alzheimer's on Aricept. 8. History of pulmonary embolism in 2007. 9. Chronic obstructive pulmonary disease without evidence of exacerbation. 10. History of lymphedema. 11. History of osteoporosis. 12. History of extensive peripheral vascular disease contributing to #1 and supported by current findings on arterial Doppler studies. This certainly will complicate the healing process in regards to treatment of underlying ulcers on the right leg. HISTORY OF PRESENT ILLNESS: This is an 80 year-old female patient who was referred from Dr. Mosqueda's office secondary to underlying cellulitis of both lower extremities. The patient has had problems with venous stasis ulcers to the lower extremities. The week prior to her admission, she had aggravated both areas. She had gone to Dr. Mosqueda's office on the morning of her admission. Dr. Mosqueda requested the patient be directly admitted for initiation of antibiotic therapy and wound care. HOSPITAL COURSE: Her leg wound cultures to the lower right leg were positive for MRSA. She was placed on vancomycin and Levaquin initially. When the sensitivities came back, it showed resistance to Levaquin so she was changed to oral doxycycline and continued on vancomycin. Dr. Ribera was consulted for wound care. She has been on MRSA precautions. She has been on vancomycin for 5 days and she has been on doxycycline for 4 days. At this point, she is in stable condition and will be discharged from the Acute Care setting and be readmitted to Swing Bed status. DISCHARGE PLAN: Again, she will be discharged from Acute Care in the hospital and admitted to the hospital under Swing Bed as recommendations per Dr. Ribera. He is afraid that if she does not get a few extra days of wound care and goes back to the long-term at [facility], that she will become reinfected and her wounds will worsen. It would probably be beneficial for her to stay on the doxycycline for at least 6 additional days as well as the vancomycin for [address] Bain could be consulted for antibiotic therapy. Her wounds have much improved over the last 5 days, but she needs just a few more days of wound care. We will also get Physical Therapy involved to keep her mobile. Her medications and current antibiotics will be resumed. She will continue her diabetic diet as well as activity per Physical Therapy. Dr. Ribera will see her for wound care, so he needs to be consulted. DISCHARGE MEDICATIONS: 1. Spironolactone. 2. Evista. 3. Potassium chloride. 4. Isosorbide. 5. Furosemide. 6. Carvedilol. 7. Guaifenesin. 8. MiraLAX. 9. Albuterol nebulizers. 10. Advair. 11. Namenda. 12. Clonazepam. 13. Lipitor. 14. Tylenol. 15. Aricept. 16. Enteric coated aspirin. 17. Vitamin D3. 18. Zofran. 19. Tylenol. 20. Align. 21. Hibiclens. 22. Doxycycline. 23. Zofran. 24. Vancomycin. 25. Warfarin. Dr. Choudhury is the collaborating physician available for consultation. #[id number] [facility]
== END 2016-07-05 16:28 | disposition swing bed (61) | DRG 603 ==
LOC: OBSVTOIN 11:50 → MS 11:50
PROVIDERS: ADMIT Family Medicine; ATTEND Nurse Practitioner Acute Care
DX: L03.116 Cellulitis of left lower limb (principal); L97.811 Non-pressure chronic ulcer of other part of right lower leg limited to breakdown of skin; L97.821 Non-pressure chronic ulcer of other part of left lower leg limited to breakdown of skin; I82.511 Chronic embolism and thrombosis of right femoral vein; N18.4 Chronic kidney disease, stage 4 (severe); I70.245 Atherosclerosis of native arteries of left leg with ulceration of other part of foot; I70.235 Atherosclerosis of native arteries of right leg with ulceration of other part of foot; L03.115 Cellulitis of right lower limb; I83.008 Varicose veins of unspecified lower extremity with ulcer other part of lower leg; B95.62 Methicillin resistant Staphylococcus aureus infection as the cause of diseases classified elsewhere; R60.0 Localized edema; I50.9 Heart failure, unspecified; E03.9 Hypothyroidism, unspecified; E78.5 Hyperlipidemia, unspecified; M81.0 Age-related osteoporosis without current pathological fracture; G30.9 Alzheimer's disease, unspecified; F02.80 Dementia in other diseases classified elsewhere, unspecified severity, without behavioral disturbance, psychotic disturbance, mood disturbance, and anxiety; J44.9 Chronic obstructive pulmonary disease, unspecified; E20.9 Hypoparathyroidism, unspecified; Z79.82 Long term (current) use of aspirin; Z79.51 Long term (current) use of inhaled steroids; Z79.899 Other long term (current) drug therapy; Z85.3 Personal history of malignant neoplasm of breast; Z90.12 Acquired absence of left breast and nipple; Z82.49 Family history of ischemic heart disease and other diseases of the circulatory system; Z87.891 Personal history of nicotine dependence; Z86.711 Personal history of pulmonary embolism

== ENCOUNTER 2016-07-05 16:52 | Inpatient (IN) | payer MEDICARE, OTHER ==
[2016-07-05] MEDS ORDERED: SODIUM PHOS/BIPHOS ENEMA ADULT 133 ML BTTL PR PRN (19:11)
[2016-07-05] MEDS ORDERED: SODIUM CHLORIDE 0.9% (FLUSH) 10 ML SYG IV PRN (19:11)
[2016-07-05] MEDS ORDERED: ACETAMINOPHEN 500 MG TAB PO PRN (19:11)
[2016-07-05] MEDS ORDERED: MAGNESIUM HYDROXIDE 30 ML UD PO PRN (19:11)
[2016-07-05] MEDS ORDERED: IV SET AND CAP CHANGE INJ INJ SCH (19:30)
[2016-07-05] MEDS: SODIUM CHLORIDE 0.9% (FLUSH) 10 ML SYG IV SCH (21:00)
[2016-07-05] MEDS ORDERED: VANCOMYCIN HCL INJ 750 MG in SODIUM CHLORIDE 0.9% 250ML 250 ML IVPB SCH (21:00)
[2016-07-05] MEDS ORDERED: VANCOMYCIN HCL INJ 1,000 MG VIAL IVPB ONE (23:09)
[2016-07-05] MEDS ORDERED: SODIUM CHLORIDE 0.9% 250ML 250 ML ONE (23:09)
[2016-07-06] MEDS: DOCUSATE SODIUM 100 MG CAP PO SCH (09:37)
[2016-07-06] MEDS: SODIUM CHLORIDE 0.9% (FLUSH) 10 ML SYG IV SCH ×2 (09:38→21:04)
--- NOTE | 2016-07-06 18:14 | PN ---
DATE: 07/06/16 SUBJECTIVE: This 80 year-old is now on her first day of post Medical/Surgical Swing Bed status for continued parenteral treatment for an MRSA infection especially involving cellulitis of the right leg. She has received specific treatment and advice from Dr. Ribera, and treatment is continuing. The patient is very insistent that she wishes to return to [facility] as soon as possible. She complains of no significant pain in either leg. No shortness of breath, nausea or vomiting. She did not eat much this evening for supper and is encouraged to continue with adequate caloric intake. OBJECTIVE: Afebrile, pulse 77, blood pressure 139/81, pulse oximetry 96% on room air. Weight 51.9 kilos. GENERAL: The patient is awake, alert and oriented , and communicative. In no acute distress and very insistent upon going home as soon as possible. LUNGS: Generally clear. HEART: Tones are regular. ABDOMEN: Soft. LOWER EXTREMITIES: Left anterior lower reyes does reveal a well- healed eschar. The right has a dressing with some slight drainage and this will continue with ongoing wound care. ASSESSMENT: 1. Bilateral lower extremity edema with stasis ulcers from poor peripheral circulation with a history of peripheral vascular disease with two areas of ulceration on the right leg as well as a small area on the left leg with the patient presently on doxycycline and vancomycin. Culture results shows methicillin-resistant Staphylococcus aureus. 2. Peripheral vascular insufficiency as documented on a recent arterial Doppler ultrasound with concern for a proximal aortoiliac stenosis or occlusion complicating healing process in regards to wound care as noted above. 3. Evidence of a old partial thrombus versus wall thickening of the right superficial femoral vein without any evidence of acute deep vein thrombus seen bilaterally with the patient stared on Lovenox based on renal function with bridging to Coumadin.Will discontinue Lovenox when INR is therapeutic. 4. Chronic renal failure, stage 4, with normal potassium at time of admission with baseline creatinine ranging from 1.4 to 1.7. 5. History of congestive heart failure with last ejection fraction in 2016 showing 45% of unknown etiology with BNP currently elevated on admission without any overt clinical signs of pulmonary edema. 6. History of hypothyroidism. 7. Mild Alzheimer's on Aricept. 8. History of pulmonary embolism in 2007. 9. Chronic obstructive pulmonary disease without evidence of exacerbation. 10. History of lymphedema. 11. History of osteoporosis. 12. History of extensive peripheral vascular disease contributing to #1 and supported by current findings on arterial Doppler studies. This certainly will complicate the healing process in regards to treatment of underlying ulcers on the right leg. PLAN: The patient is scheduled for vancomycin trough at 8:15 PM this evening. With that information in hand, then her 9:00 PM dose of vancomycin will be determined by the Pharmacy staff and this dose will be continued for 3 days. These next 3 days with the patient returning to [facility] will continue with the vancomycin per Pharmacy protocol dosing IV and then stopped. The doxycycline taken twice daily will also be continued during that interim time. In the meantime, she is going to specifically pay attention to keeping her feet as elevated as possible when in bed and to reduce the edema state which will assist with tissue healing. Reevaluate in the morning and anticipate transfer to [facility] after discharge for continued treatment and followup. Close followup with Dr. Mosqueda in the clinic will also be necessary after discharge to [facility]. #[id number] [facility]
[2016-07-06] MEDS ORDERED: FLUTICASONE/SALMETEROL 250/50 14 PUFF/17 GM INH INH SCH (20:00)
[2016-07-06] MEDS ORDERED: SODIUM CHLORIDE 0.9% 250ML 250 ML ONE (20:09)
[2016-07-06] MEDS ORDERED: VANCOMYCIN HCL INJ 1,000 MG VIAL IVPB ONE (20:09)
[2016-07-07] MEDS ORDERED: ASPIRIN TABLET 325 MG TAB PO PRN (08:00)
[2016-07-07] MEDS ORDERED: FLUTICASONE/SALMETEROL 250/50 14 PUFF/17 GM INH INH SCH (08:00)
[2016-07-07] MEDS ORDERED: SODIUM CHLORIDE 0.9% 250ML 250 ML ONE (08:17)
[2016-07-07] MEDS ORDERED: VANCOMYCIN HCL INJ 1,000 MG VIAL IVPB ONE (08:18)
[2016-07-07] MEDS ORDERED: VANCOMYCIN HCL INJ 1,000 MG in SODIUM CHLORIDE 0.9% 250ML 250 ML IVPB SCH (09:00)
[2016-07-07] MEDS: SODIUM CHLORIDE 0.9% (FLUSH) 10 ML SYG IV SCH (09:12)
[2016-07-07] MEDS: DOCUSATE SODIUM 100 MG CAP PO SCH (09:12)
[2016-07-07 12:32] VITALS: BP 152/73; TEMP 96.2; O2SAT 98
--- NOTE | 2016-07-07 17:45 | DS ---
DISCHARGE DIAGNOSIS: 1. Significant stasis ulceration with infection with culture-proven Methicillin resistant Staphylococcus aureus requiring specialized wound care as well as IV antibiotics even on discharge to the Intermediate Facility. 2. History of peripheral vascular insufficiency with proximal aortoiliac stenosis which hindering the healing of the wound, especially on the right leg. 3. History of an old partial thrombus versus wall thickening of the right superficial femoral vein with no evidence of an acute deep vein thrombus with the patient currently on anticoagulation therapy. 4. Chronic renal failure, improved with hydration. 5. History of congestive heart failure with last ejection fraction in 2016 showing 45% of an undetermined etiology with beta natriuretic peptide elevated on admission with no evidence of an acute pulmonary edema exacerbation. 6. History of hypothyroidism on supplementation. 7. Mild Alzheimer's dementia on Aricept. 8. History of pulmonary embolism in 2007. 9. History of chronic obstructive pulmonary disease without evidence of exacerbation. 10. History of chronic lymphedema. 11. History of osteoporosis. 12. History of extensive peripheral vascular disease contributing to the stasis ulcerations requiring ongoing treatment course. HISTORY OF PRESENT ILLNESS: This 80 year-old white female was admitted to the hospital from Dr. Mosqueda's office because of worsening cellulitis with draining stasis ulcers of the lower extremity. Cultures were obtained and grew Methicillin resistant Staphylococcus aureus requiring vancomycin and doxycycline for treatment based upon sensitivities. Initial medication of Levaquin was resistant and was subsequently stopped. The patient is cared for at [facility]. Her condition was stabilized and required additional treatment for the edema state as well as the parenteral treatment for the underlying infection and was admitted to Swing Bed status for a couple of days, and then the treatment will be continued at [facility]. LABORATORY: White count was 7,100, hemoglobin 10.5. Last INR was 2.16 on Coumadin of 5 mg a day. This will be watched closely at [facility] upon discharge. Potassium on discharge was 4.7, BUN 28, creatinine 1.34. Beta natriuretic peptide elevated, was up to 669. Urinalysis showed some slight degree of hematuria. Last vancomycin trough was elevated at 18, so adjustments of the vancomycin per Pharmacy protocol was entered with dosing to be 1 gram every 36 hours and the dose from last evening was held until this morning at 9:00 AM before discharge to [facility]. Cultures: Blood cultures were negative and the right leg wound grew MRSA. HOSPITAL COURSE: The patient was very insistent that she wished to continue with outpatient management at [facility] and arrangements have been made for continuation of parenteral treatment for at least 3 more doses of the vancomycin 1 gram every 36 hours with the first dose at [facility] to be at 2100 on 07/08/16. PLAN: She will continue with doxycycline 100 mg b.i.d. for 6 additional days. Specialized wound care with Hibiclens diluted cleansing daily with wet-to-dry dressings will continue at the detention. They will call Dr. Ribera if questions arise regarding the leg wound. Encourage increased activity and walking with a walker, yet avoiding falling. To check the ProTime in 3 to 4 days with results to Dr. Mosqueda for Coumadin dosage adjustments as needed. Return if not improving. Close attention to avoid worsening of the edema state which aggravates the healing process of the stasis ulcers. Eventually would benefit by panty hose or TERENCE hose to the lower extremities to assist with prevention of the significant venous stasis condition. Close followup is necessary. #[id number] [facility]
--- NOTE | 2016-07-08 16:51 | HP ---
SUPERVISING PHYSICIAN: Dago Choudhury M.D. CHIEF COMPLAINT: Wound care. HISTORY OF PRESENT ILLNESS: This is an 80 year-old female patient who had been admitted to the hospital on 06/30/[address] Mosqueda's office secondary to underlying cellulitis of both lower extremities. She has had chronic venous stasis ulcers to the lower extremities but she aggravated both areas, especially on the right lower extremity. She was playing dominoes and bumped her legs against the table and chair. She was admitted to the hospital for initiation of antibiotic therapy and wound care. Dr. Ribera was consulted at that time. Initially she was put on Levaquin and vancomycin. When her cultures were returned, it was found it was not sensitive to Levaquin so she was changed to oral doxycycline as well as vancomycin. Dr. Ribera continued to monitor as well as treated her wounds. They had improved greatly over her admission. She was discharged from the Acute Care setting. She is now to be admitted to Swing Bed for wound care per Dr. Ribera as well as continuation of IV antibiotics and physical therapy for strengthening and conditioning. PAST MEDICAL HISTORY: 1. Congestive heart failure, currently on an angiotensin receptor april. 2. Hyperlipidemia. 3. Peripheral vascular disease. 4. History of lymphedema. 5. History of patient underwent embolus in 2007. 6 History of chronic renal failure stage 4. 7. Osteoporosis. 8. 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 9. Breast cancer diagnosed in 2013 status post surgical resection by Dr. Ribera. 10. Alzheimer's,. 11. Chronic obstructive pulmonary disease. PAST SURGICAL HISTORY: 1. Left breast mastectomy in 07/[address] Ribera. 2. Colonoscopy in 2007. 3. Echocardiogram on 06/20/15 with estimated ejection fraction of 45%. 4. Cardiac catheterization in 02/2009. CURRENT MEDICAL PROVIDERS: 1. Care Center Manager, Dr. Albrecht. 2. Boner Meat, Dr. Chaudhari and Dr. Graham. 3. Rider Ticket Worker, Dr. Jama. 4. Floor Layer/oncologist, Dr. Chin. 5. Commercial Development Manager, Dr. Ponce. 6. Surgeon, Dr. Ribera. 7. Vascular surgeon, Dr. Dickinson. 8. Primary care provider, Dr. Mosqueda CURRENT MEDICATIONS: 1. Spironolactone 25 mg daily. 2. Zofran every 6 hours if needed for nausea. 3. Advair 250/50 Diskus one puff inhaled b.i.d. 4. Vitamin 3 D 1000 units twice daily. 5.. Potassium chloride 8 mEq every other day. 6. MiraLAX 17 grams daily. 7. Namenda 5 mg twice daily. 8. Mucinex 600 mg twice daily as needed. 9. Lasix 40 mg every other day twice daily. 10. Evista 60 mg daily. 11. Isosorbide mononitrate 30 mg daily. 12. Clonazepam 0.5 mg b.i.d. 13. Carvedilol 6.25 mg b.i.d. 14. Lipitor 20 mg at bedtime. 15. Enteric-coated aspirin 325 mg daily. 16. Aricept 23 mg at bedtime. 17. Proventil nebulizers 2.5 mg inhaled a.c. and h.s. 18. Tylenol 1000 mg every 6 hours p.r.n. FAMILY HISTORY: The patient's father at age 66 from coronary artery disease. Mother at age 80 from normal causes. SOCIAL HISTORY: The patient is retired. She does live at [facility]. She is . She has no children. She has a history of previous cigarette smoking , but quit many years previously. She denies any alcohol or illicit drug use. REVIEW OF SYSTEMS: CONSTITUTIONAL: Denies any fevers, chills, or unintentional weight loss or weight gain. HEENT: Somewhat hard of hearing, but has no visual disturbances noted. RESPIRATORY: No noted shortness of breath or cough. CARDIOVASCULAR: Denies chest pain or palpitations. No syncopal episodes. GASTROINTESTINAL: Denies nausea or vomiting. No diarrhea or bloody stools. GENITOURINARY: Denies dysuria. EXTREMITIES: As noted in history of present illness, bilateral lower extremity edema with cellulitis. NEUROLOGIC: Denies syncopal episodes or neurological deficits. PHYSICAL EXAMINATION: VITAL SIGNS: Temperature 97.8, heart rate 50, blood pressure 134/63, respiratory rate 18, O2 sat 100%. GENERAL: This is an 80 year-old female patient who is lying in her hospital bed. She is in no acute distress. HEENT: Normocephalic and atraumatic. Pupils are equal and reactive. Oropharynx is clear. NECK: Supple without mass. CHEST: Clear to auscultation bilaterally. There is equal rise and fall of the chest with inspiration and expiration. CARDIOVASCULAR: Regular rate and rhythm. ABDOMEN: Soft, nondistended, non-tender. Bowel sounds are positive. EXTREMITIES: She has a dressing to her right lower leg that is dry and intact. There is just a trace of pedal edema to the right lower leg. There is no edema, cyanosis or clubbing to the left lower leg. NEUROLOGIC: She is awake, alert and oriented times three although she does get confused at times. LABORATORY AND RADIOLOGY: There are no labs or films to report at this time. ASSESSMENT: 1. Bilateral lower extremity edema with stasis ulcers from poor peripheral circulation with a history of peripheral vascular disease with two areas of ulceration on the right leg as well as a small area on the left leg with the patient presently on doxycycline and vancomycin. Culture results shows methicillin-resistant Staphylococcus aureus. 2. Peripheral vascular insufficiency as documented on a recent arterial Doppler ultrasound with concern for a proximal aortoiliac stenosis or occlusion complicating healing process in regards to wound care as noted above. 3. Evidence of a old partial thrombus versus wall thickening of the right superficial femoral vein without any evidence of acute deep vein thrombus seen bilaterally with the patient stared on Lovenox based on renal function with bridging to Coumadin.Will discontinue Lovenox when INR is therapeutic. 4. Chronic renal failure, stage 4, with normal potassium at time of admission with baseline creatinine ranging from 1.4 to 1.7. 5. History of congestive heart failure with last ejection fraction in 2016 showing 45% of unknown etiology with BNP currently elevated on admission without any overt clinical signs of pulmonary edema. 6. History of hypothyroidism. 7. Mild Alzheimer's on Aricept. 8. History of pulmonary embolism in 2007. 9. Chronic obstructive pulmonary disease without evidence of exacerbation. 10. History of lymphedema. 11. History of osteoporosis. 12. History of extensive peripheral vascular disease contributing to #1 and supported by current findings on arterial Doppler studies. This certainly will complicate the healing process in regards to treatment of underlying ulcers on the right leg. PLAN: We will admit the patient to Swing Bed. We will continue the vancomycin for at least 3 more days as well as continue her doxycycline. I believe she is on day 4 of that and we will need to continue that for 10 total days. She is also to have wound care per Dr. Ribera. I have also ordered physical therapy for strengthening and conditioning. Hopefully in the next few days she can be discharged to [facility] after Dr. Ribera has determined that she can be discharged. Otherwise we will continue to monitor the patient closely and followup as needed. Dr. Choudhury is the collaborating physician and available for consultation. #[id number] [facility]
== END 2016-07-07 12:30 | DRG 300 ==
LOC: MS 16:52
PROVIDERS: ADMIT Nurse Practitioner Acute Care; ATTEND Emergency Medicine
DX: I70.249 Atherosclerosis of native arteries of left leg with ulceration of unspecified site (principal); I82.511 Chronic embolism and thrombosis of right femoral vein; N18.4 Chronic kidney disease, stage 4 (severe); L03.116 Cellulitis of left lower limb; L03.115 Cellulitis of right lower limb; L97.929 Non-pressure chronic ulcer of unspecified part of left lower leg with unspecified severity; I70.239 Atherosclerosis of native arteries of right leg with ulceration of unspecified site; L97.919 Non-pressure chronic ulcer of unspecified part of right lower leg with unspecified severity; I50.9 Heart failure, unspecified; E03.9 Hypothyroidism, unspecified; G30.9 Alzheimer's disease, unspecified; F02.80 Dementia in other diseases classified elsewhere, unspecified severity, without behavioral disturbance, psychotic disturbance, mood disturbance, and anxiety; Z86.711 Personal history of pulmonary embolism; J44.9 Chronic obstructive pulmonary disease, unspecified; M81.0 Age-related osteoporosis without current pathological fracture; B95.62 Methicillin resistant Staphylococcus aureus infection as the cause of diseases classified elsewhere; Z79.899 Other long term (current) drug therapy; Z79.01 Long term (current) use of anticoagulants

== ENCOUNTER → 2016-11-05 | Outpatient (CLI) | payer MEDICARE, OTHER ==
--- NOTE | 2016-11-05 18:21 | CT ---
EXAM DESCRIPTION: Chest w/o Contrast CLINICAL HISTORY: 81 years, Female, SOLITARY PULMONARY NODULE COMPARISON: May 06, 2016, September 30, 2014. April 15, 2016 TECHNIQUE: Thin-section noncontrast axial CT images are obtained according to our protocol. Reconstructed MPR images are created and reviewed as well. This exam was performed according to our departmental dose-optimization program, which includes automated exposure control, adjustment of the mA and/or kV according to patient size and/or use of iterative reconstruction technique. FINDINGS: Previously described advanced emphysematous changes with bullous disease and hyperexpansion of the lungs is again noted with a large dense granulomatous calcification in the mid to slightly upper lung lewis on the right. Area of concern at the lateral right lung base seen on prior abdominal CT and April is more linear and inflammatory in appearance on today's study without a discrete nodule or mass noted. In the medial right lung base there are coarsened parenchymal markings that are new from prior May study as well as an additional area of patchy stranding and density in the posterior right midlung field. Smaller areas of bronchopneumonia and/or bronchiectasis is suspected. New inflammatory changes are evident. A recurrent pneumothorax on the right is not apparent. New inflammation or consolidation in the left lung is not apparent. Soft tissue imaging demonstrates extensive aortic and coronary calcification without central hilar mass. A stable approximate 1.4 cm precarinal mid mediastinal lymph node is unchanged from prior May study. A smaller slightly elongated lymph node in the aorticopulmonary window region adjacent to the a.c. sending aorta is also unchanged. The bolus and right apical pleural parenchymal nodular changes are stable and unchanged in comparison to prior study. Below the diaphragm small nonobstructing intrarenal calculi are noted with no specific abnormality in the upper abdomen is evident. A small retrocardiac hiatal hernia is noted. IMPRESSION: 1. Evolving appearance of the right lung base with new patchy areas of incomplete consolidation in the medial posterior right lung base as well as the posterior mid lung field consistent with bronchopneumonia and/or tubular bronchiectasis. 2. Small area of previous nodularity at the lateral right lung base appears mildly inflammatory with pleural thickening without a distinct nodule at this time. 3. Stable advanced emphysematous changes with large granulomatous calcification in the right upper lung field and right apical lung bullous and nodular changes, stable in comparison to prior study. 4. Stable mild adenopathy in the middle mediastinum in the pretracheal and aorticopulmonary window region, unchanged from prior study. Electronically signed by: Vikas Espinosa MD 11/05/2016 6:20 PM CDT
== END | disposition home or self-care (01) ==
LOC: CT 14:01
PROVIDERS: ATTEND Family Medicine
DX: R91.1 Solitary pulmonary nodule (principal)

== ENCOUNTER → 2016-11-13 | Outpatient (CLI) | payer MEDICARE, OTHER | END | disposition home or self-care (01) | LOC: GMAM 13:10 | PROVIDERS: ATTEND Family Medicine | DX: R51 Headache (principal) ==

== ENCOUNTER → 2017-01-18 | Outpatient (CLI) | payer MEDICARE, OTHER | END | disposition home or self-care (01) | LOC: GMAM 18:51 | PROVIDERS: ATTEND Family Medicine | DX: R51 Headache (principal) ==

== ENCOUNTER → 2018-01-24 | Outpatient (CLI) | payer MEDICARE, OTHER | LOC: GMAM 13:40 | PROVIDERS: ATTEND Family Medicine | DX: R53.82 Chronic fatigue, unspecified (principal) ==

== ENCOUNTER → 2018-02-01 | Outpatient (CLI) | payer MEDICARE, OTHER ==
--- NOTE | 2018-02-01 15:11 | CT ---
EXAM DESCRIPTION: Chest w/o Contrast : Computed Tomography. CLINICAL HISTORY: SOLITARY PULMONARY NODULE COMPARISON: CT scan of the chest without contrast 11/05/2016. TECHNIQUE: Spiral-axial scans at 5 x 5 mm intervals through the lungs and thorax without IV contrast. 2.5 x 5 mm lung algorithm axial reconstructions. Coronal and sagittal 2.0 Mm reconstructions. Total Exam DLP: 234.18 mGy-cm. This exam was performed according to our departmental dose-optimization program which includes automated exposure control, adjustment of the mA and/or kV according to patient size and/or use of iterative reconstruction technique; to reduce radiation dose to as low as reasonably achievable (ALARA). Nodule measurements under 10 mm are given as mean value of 3 axes diameters. FINDINGS: Lungs and large airways: Multiple blebs and bulla bilateral upper lobes more severe on the right and also larger, with less involvement of the mid and lower lung lewis. Heavy density with small peripheral calcifications in the lateral right apex is also adjacent to focal pleural thickening with lobulated irregular borders measures approximately 1.4 x 1.2 cm. 5 mm in thickness. No significant change since the prior study, seen on lung thin section axial sequence 4, images 12 through 16. Cicatrization atelectasis in the right upper lobe with scarring and elevation of the right horizontal fissure which contains a elongated plaque-like area of calcification almost 2 cm in greatest diameter showing no significant change since the prior study on lung axial images 52 through 56. Thickened parenchymal densities in the posterior recess of the right lower lobe associated with pleural thickening. Fewer blebs in the right lower lobe than in the upper right lung field. Scarring and atelectasis posterior recess left lower lobe. Possible groundglass infiltrate not seen on the prior study, allowing axial images 95-108. 5 mm pleural nodule more likely than parenchymal nodule lateral left lower lobe lung axial images 98 - 106. 2 mm calcified nodule posterior left upper lobe abutting the left major fissure on lung axial image 56. Pleural spaces: Bilateral pleural thickening diffuse and focal with no effusion bilaterally or pneumothorax. Mediastinum and Sandra: Evaluation limited due to lack of IV contrast. Small lymph nodes nodes are noted with no large soft tissue masses. Great vessels and Heart: Evaluation limited due to lack of IV contrast.. Coronary artery calcifications. Atherosclerotic calcifications of the proximal brachiocephalic vessels and aortic arch. Soft tissues of neck base, axillae, and chest wall: Evaluation limited due to lack of IV contrast.. Unremarkable. Upper abdomen: No free air or free fluid. Less than 3 mm radiodense stones versus vascular calcifications in the upper poles of the bilateral kidneys less than 3 mm diameter. No perinephric edema. Abdominal aortic atherosclerotic calcification. Osseous structures: Spondylosis at multiple levels of the thoracic spine with exaggerated kyphosis. Minimal anterior wedging of the T6 and T7 vertebral bodies. No blastic or lytic lesions. Stable since the prior study. 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 IMPRESSION: 1. Diffuse emphysematous changes are advanced in the bilateral upper lobes more on the right than the left with scarring and cicatrization atelectasis resulting in volume loss right upper lobe. Stable since the prior study. Pleural nodular thickening more likely than parenchymal nodule in the lateral right apex, greatest diameter 1.4 cm, stable since the prior study. Stable left upper lobe calcified granuloma. Stable focal pleural thickening more likely than parenchymal nodule lateral left lower lobe. New groundglass infiltrate in the posterior left lower lobe base. Correlate with clinical findings. Repeat Best Practice recommendations based upon Fleischner Society 2017 recommendations for follow-up of some solid nodules. Consider noncontrast chest CT scan follow-up in 3-6 month interval. Please see below* 2. Vascular calcifications versus renal stones bilateral upper poles of the kidneys. Stable since the prior study. * 2017 Fleischner Society Recommendations for Subsolid Lung Nodule Follow-Up based on size (average of long- and short-axis diameters). Use most suspicious nodule for followup. Multiple < 6mm: CT at 3-6 months. If stable consider CT at 2 and 4 years. > or = 6mm: CT at 3-6 months. Subsequent management based on the most suspicious nodule(s). Electronically signed by: Sim Sutherland MD 02/01/2018 3:10 PM [employer]
== END ==
LOC: CT 08:02
PROVIDERS: ATTEND Family Medicine
DX: R91.1 Solitary pulmonary nodule (principal)